=== PATIENT | male | born 1945 | race African-American/Black ===

== ENCOUNTER 2020-04-30 07:44 | Inpatient (IN) | payer MEDICARE, OTHER ==
[2020-04-30 08:45] LABS: ALT (SGPT) 35 U/L (8-55); AST (SGOT) 40 U/L (5-34); Albumin 4.5 g/dL (3.4-4.8); Alkaline Phosphatase 128 U/L (40-110); Anion Gap 17 mmol/L (10-20); BUN (Urea Nitrogen) 26 mg/dL (8.4-25.7); Bilirubin, Total 0.6 mg/dL (0.2-1.2); Calc. Creatinine Clearance 0 mL/min (70-130); Calcium 10.3 mg/dL (7.8-10.44); Carbon Dioxide 31 mmol/L (23-31); Chloride 94 mmol/L (98-107); Estimated GFR-MDRD Greater than 90; Globulin 3.6 g/dL (2.4-3.5); Glucose 119 mg/dL (83-110); Potassium 5.2 mmol/L (3.5-5.1); Protein, Total 8.1 g/dL (5.8-8.1); Sodium 137 mmol/L (136-145)
[2020-04-30 09:50] LABS: Bacteria/HPF None Seen HPF (None Seen); Bilirubin Negative (Negative); Blood, Urine 2+ (Negative); Clarity Clear (Clear); Glucose, Urine (Dipstick) Normal (Negative); Ketone, Urine Negative (Negative); Leukocyte Negative Leu/uL (Negative); Mucous/LPF 1+ LPF (<2+); Nitrite Negative (Negative); Protein, Urine (Dipstick) 50 mg/dL (Neg-Trace); RBC/HPF 21-50 HPF (0-3); Specific Gravity, Urine 1.028 (1.002-1.036); Squamous Epithelial 0-3 HPF (0-3); Urobilinogen Normal mg/dL (Less than 2)
[2020-04-30 10:14] LABS: Anisocytosis SLIGHT = 6-15 cells (100X) (0-5/hpf); Hemoglobin 17.1 g/dL (14.0-18.0); Large Platelets SLIGHT; Lymphocytes 15 % (21-51); MDiff Complete? YES; Macrocytosis SLIGHT = 6-15 cells (100X) (0-5/hpf); Mean Corpuscular HGB CONC 27.2 g/dL (32.0-36.0); Mean Corpuscular Hemoglobin 27.2 pg (27.0-31.0); Mean Corpuscular Volume 99.9 fL (78.0-98.0); Mean Platelet Volume 10.1 fL (7.4-10.4); Monocytes 11 % (0-10); Neutrophil 64 % (42-75); Platelet Count 145 thou/uL (130-400); Platelet Morphology Comment Appears Adequate; Polychromasia SLIGHT = 2-3 cells (100X) (0-2/hpf); RBC Distribution Width 16.3 % (11.5-14.5); Reactive Lymphocytes 10 % (0-10); Red Blood Cell (RBC) Count 6.31 mill/uL (4.70-6.10); Target Cells SLIGHT = 2-5 cells (100X) (0-1/hpf); Vacuoles SLIGHT; White Blood Cell (WBC) Count 6.3 thou/uL (4.8-10.8)
--- NOTE | 2020-04-30 10:16 | CT ---
CT OF BRAIN PERFORMED WITHOUT CONTRAST ENHANCEMENT: HISTORY: Level I stroke alert. Patient found aphasic this morning. FINDINGS: There is generalized ventricular and sulcal prominence. There are no signs of intracerebral hemorrha ge or extraaxial fluid collections. mastoid air cells and visualized sinuses are clear. IMPRESSION: No acute intracranial abnormalities. Findings telephoned to Dr. Astorga at 0757 hours. CODE CR POS: OFF
[2020-04-30] MEDS ORDERED: Vancomycin 1 GM/200 ML BAG ONE (10:30)
[2020-04-30] MEDS ORDERED: Cefepime 2 GM VIAL ONE (10:30)
--- NOTE | 2020-04-30 10:45 | RAD ---
EXAM: XR Pelvis AP STANDARD PROVIDED CLINICAL HISTORY: Injury after fall. COMPARISON: None FINDINGS: Contrast is seen in the urinary bladder related to recent contrasted study. 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 The hips are in external rotation which limits evaluation of the femoral necks. No obvious fracture is appreciated. There certainly no displaced fracture identified. Mild degenerative change are seen in the lower lumbar spine. IMPRESSION: No definite fracture is visualized. If there is pain localized to either hip, dedicated views of that hip are recommended for further evaluation.
--- NOTE | 2020-04-30 11:35 | CT ---
CT ANGIO OF HEAD AND NECK PERFORMED WITH INTRAVENOUS CONTRAST ENHANCEMENT WITH 3D RECONSTRUCTIONS: HISTORY: The patient was found aphasic unable to follow commands. Severe emphysematous lung changes are noted without infiltrates in the upper lobes. The thyroid glan d is unremarkable. Vocal cord region is unremarkable. Parapharyngeal spaces are clear. No signific ant jugular chain adenopathy. 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 The vertebral arteries are small. The left is larger than the right. The rig ht ends in the PICA branch. On the right side, the right common internal and external carotid arteries show no significant stenos is. There is plaque formation present. Similar changes are seen in the left. No significant stenosis by NASCET criteria. CT ANGIO OF HEAD PERFORMED WITH INTRAVENOUS CONTRAST ENHANCEMENT AND 3D RECONSTRUCTIONS: The anterior and middle cerebral arteries and their branches appear unremarkable. No evidence for an y large vessel occlusion. There is a origin of both posterior cerebral arteries. The basilar artery is very diminutive i n size and the main posterior circulation is fed by anterior circulation. IMPRESSION: 1. No evidence of any significant stenosis of either internal carotid artery by NASCET criteria. 2. No evidence of any thrombus within any of the larger branches of the anterior middle cerebral art eries. No aneurysm demonstrated. 3. The posterior circulation shows a very diminutive in size basilar artery. There is some contribu tion from the left vertebral. The right vertebral forms a PICA branch. There is origin of bot h posterior cerebral arteries which is the main contributor to posterior circulation flow. 4. This report was telephoned to Dr. Astorga at 0820 hours. CODE CR POS: OFF
--- NOTE | 2020-04-30 13:28 | RAD ---
PORTABLE CHEST: HISTORY: Syncope, stroke alert. FINDINGS: Heart size is enlarged. Chronic-appearing lung changes are seen. No focal infiltrative process is p resent. IMPRESSION: Chronic lung change. Cardiomegaly. POS: OFF
[2020-04-30] MEDS ORDERED: Acetaminophen 325 MG TAB PO PRN (15:53)
[2020-04-30] MEDS ORDERED: Senokot S 8.6-50 MG TAB PO PRN (15:53)
[2020-04-30] MEDS ORDERED: Sodium Chloride 0.9% 500 ML IV SCH (18:00)
[2020-04-30] MEDS ORDERED: Azithromycin 500 MG in Sodium Chloride 0.9% 250 ML 250 ML IVPB SCH (18:30)
[2020-04-30] MEDS ORDERED: cefTRIAXone\\ROCEPHIN 1 GM in Sodium Chloride 0.9% 100 ML IVPB SCH (18:30)
[2020-04-30] MEDS ORDERED: hydrALAZINE 20 MG/ML VIAL SLOW IVP PRN (18:39)
[2020-04-30] MEDS: Budesonide 0.5 MG/2 ML NEB NEB SCH (19:05)
--- NOTE | 2020-04-30 19:06 | HP ---
CHIEF COMPLAINT: Change in mental status. HISTORY OF PRESENT ILLNESS: The patient is a 75-year-old male with past medical history of atrial fibrillation, status post Watchman procedure 45 days ago; pneumonia, recurrent per ; COPD, on chronic oxygen; and heart failure, most likely diastolic, who presents to the hospital with complaints of change in mental status. The patient's , who is at the bedside states that the patient for the past 2 or 3 days has been having some intermittent confusion, decreased oral intake, decreased appetite, feeling weak. She denies any fevers or chills. The patient recently saw his PCP and also his urologist. The patient's stated that last night he fell asleep on the chair. When he did wake up this morning, she went to arouse him and he appeared to be more disoriented than at baseline. She then alerted her neighbor, who is a retired nurse, who came in and checked on the patient. Did some vitals and was concern for possible stroke. At this time, the patient was brought into the hospital by [facility]. The patient initially underwent an underwent a stroke evaluation in the ER. CT head was negative. CTA did not show any acute stenosis. The patient's then stated that the patient when he gets pneumonia, he does have periods of confusion and acts very similar to this. PAST MEDICAL HISTORY: 1. The patient has a history of CHF, unclear which type, most likely appears to be diastolic. 2. Pneumonia. He has had 3 pneumonias, two in 2019, one this year. 3. COPD. He is on chronic oxygen. 4. Atrial fibrillation. PAST SURGICAL HISTORY: He has had a Watchman procedure, which was done 45 days ago. He has also had a right knee arthroscopy and right rotator cuff repair. FAMILY HISTORY: Mother of some sort of cancer. Father had stroke. SOCIAL HISTORY: He is a former smoker, smoked a pack a day. He drinks socially. Denies any drug use. He is a full code. Lives with his . ALLERGIES: NO KNOWN DRUG ALLERGIES. MEDICATIONS: As of the following; 1. Eliquis 5 mg b.i.d. 2. Aspirin 81 mg daily. 3. Budesonide 0.5 neb b.i.d. 4. Metoprolol one p.o. b.i.d. 5. Prednisone 10 mg daily. 6. Tamsulosin 0.4 mg daily. REVIEW OF SYSTEMS: All negative except for the ones mentioned above in the HPI. PHYSICAL EXAMINATION: VITAL SIGNS: As of the following; temperature of 98.7, pulse 89, oxygen saturation 99% on 2.5 L, and blood pressure 160/97. GENERAL: He is awake, alert, and oriented x3. Does not appear in any distress. CV: S1 and S2 present. No murmurs, rubs, or gallops. LUNGS: Clear to auscultation. No rhonchi or wheezes noted. ABDOMEN: Soft and nontender. Bowel sounds are present x2. EXTREMITIES: He does have significant lower extremity edema. His left foot edema is greater than the right, which is normal per the patient's . He does have braces on both of his knees, which is not new. NEUROVASCULAR: Neurovascular-robles, no focal deficits noted. The patient is able to move all 4 extremities. SKIN: He has some bruising noted in his right hand and some swelling of the right hand. LABORATORY RESULTS: As of the following; sodium of 137, potassium of 5.2, BUN of 26, and creatinine of 0.84. His AST was 40. His alkaline phosphatase was 128. Hematology; WBCs of 6.3, hemoglobin of 17.1, hematocrit of 63.0, and platelets of 145. He had a urine, which indicated 4 to 6 wbc's in hyaline cast. IMAGING DATA: X-ray, he had a chest x-ray and a pelvic x-ray. Chest x-ray, according to my interpretation, just indicated some chronic lung changes. No acute abnormalities were noted. Pelvic x-ray indicated no fractures were noted. The patient also as I mentioned had a CTA and a brain CT. CTA indicated no evidence of significant stenosis of either internal carotid artery. No evidence of thrombus was noted. ASSESSMENT AND PLAN: The patient is a very pleasant 75-year-old male, who presents to the hospital with change in mental status. 1. Acute metabolic encephalopathy. This could be infectious versus stroke versus dehydration. The patient currently is at baseline per . I do not see any x-ray findings. No white count. No cough. No fever. Any concerns of pneumonia. However, I will start him on some broad-spectrum antibiotic for now. I will treat him for community-acquired pneumonia actually and I will get a CT of the chest without contrast to see if there are any findings of pneumonia. Stroke is definitely a possibility. The patient currently is at baseline. I will get an MRI brain just to rule out any stroke-like symptoms. May also get Neurology involved for this confusion. Dehydration is definitely a possibility. The patient's BUN is elevated than his creatinine. Also, his hematocrit is significantly elevated. This could be secondary to other possibilities also. I will hydrate him gently and see if his labs improve. 2. Chronic obstructive pulmonary disease, appears to be stable. He is on chronic oxygen and steroids, we will continue that. 3. Atrial fibrillation, status post Watchman procedure. We will continue the Eliquis for now. 4. Deep venous thrombosis prophylaxis. The patient is already on Eliquis. 5. Code status. I discussed this with the patient and the patient's . She states that she wants the patient to be full code. 6. Fall. The patient's is at the bedside states that the patient has had 2 or 3 falls for the past couple pf days. She denied any syncopal episode. She states that he has significant severe bad knees and he needs knee surgeries and for the past few days. He has been using a wheelchair because he has been just deconditioned to walk. We will get a right hip x-ray. The pelvic x-ray was okay. We will get a right hip x-ray. The patient's right hand appears to be significantly swollen compared to the left hand. We will also get x-rays. He does not have any abnormalities in range of motion of his right or the left. There is no pain. However, since he is on Eliquis, there is a concern for possible hematoma. We will also get PT and OT to see this patient. Job ID: [id number]
--- NOTE | 2020-04-30 19:50 | RAD ---
RIGHT HAND THREE VIEWS: 04/30/20 HISTORY: Fall with hand swelling. There are moderate arthritic changes present. Degenerative changes of the proximal and distal interph alangeal joints and first carpometacarpal joint spade. There are no signs of fracture or dislocation. IMPRESSION: Moderate arthritic changes of the hand. No acute injury. POS: JODI
--- NOTE | 2020-04-30 20:40 | RAD ---
RIGHT HIP: 04/30/20 Two views. HISTORY: Fall with injury. Slight buckling of the anterior cortex of subcapital region on the AP projection. This may be degener ative in nature. There is spurring from the femoral head which contributes to this finding. I cannot completely exclude a nondisplaced subcapital fracture. Recommend MRI of hip without contrast to be pe rformed in a.m. CT may be equivocal given the degenerative change present. IMPRESSION: Subtle subcapital fracture not completely excluded. Recommend MRI of hip without contrast in a.m. POS: LINNETTE
--- NOTE | 2020-04-30 22:03 | ULT ---
SOFT TISSUE ULTRASOUND RIGHT WRIST: 04/30/20 INDICATIONS: Fall with swelling over dorsal right wrist. FINDINGS/IMPRESSION: Soft tissue ultrasound to the area of palpable concern is performed. There is a hypoechoic mass in th e subcutaneous tissue corresponding to the palpable lump which measures 3.0 x 2.0 cm. Findings would be most consistent with hematoma given the history of injury. follow-up recommended to ensure resolut ion. POS: ARICW
[2020-04-30] MEDS: Metoprolol Tartrate 25 MG TAB PO SCH (22:09)
[2020-04-30] MEDS: Apixaban 5 MG TAB PO SCH (22:09)
--- NOTE | 2020-04-30 22:12 | CT ---
CT CHEST WITHOUT CONTRAST: 04/30/20 INDICATIONS: Question pneumonia. FINDINGS: There is cardiomegaly and mild vascular congestion. Interstitial prominence may represent interstiti al congestion and or interstitial edema. Mild bibasilar atelectasis. Tiny effusions. No consolidation . No evidence of inflammatory infiltrate. Images through the upper abdomen show calcifications in the upper collecting structures of both kidne ys. IMPRESSION: Cardiomegaly with vascular and interstitial congestive change. Mild bibasilar atelectasis and tiny ef fusions. POS: AGW
[2020-05-01 04:45] LABS: #Lymphocytes 0.6 thou/uL (1.20-3.40); #Neutrophils 5.3 thou/uL (1.40-6.50); %Eosinophils 0.7 % (0.0-10.0); %Lymphocytes 8.2 % (21.0-51.0); %Monocytes 14.9 % (0.0-10.0); %Neutrophils 76.2 % (42.0-75.0); Hemoglobin 16.2 g/dL (14.0-18.0); Mean Corpuscular Hemoglobin 28.2 pg (27.0-31.0); Mean Platelet Volume 10.3 fL (7.4-10.4); Platelet Count 156 thou/uL (130-400); RBC Distribution Width 16.2 % (11.5-14.5); Red Blood Cell (RBC) Count 5.75 mill/uL (4.70-6.10); White Blood Cell (WBC) Count 6.9 thou/uL (4.8-10.8)
[2020-05-01 05:09] LABS: Anion Gap 13 mmol/L (10-20); BUN (Urea Nitrogen) 21 mg/dL (8.4-25.7); Calc. Creatinine Clearance 120 mL/min (70-130); Calcium 9.5 mg/dL (7.8-10.44); Carbon Dioxide 32 mmol/L (23-31); Chloride 95 mmol/L (98-107); Estimated GFR-MDRD Greater than 90; Glucose 100 mg/dL (83-110); Potassium 5.2 mmol/L (3.5-5.1); Sodium 135 mmol/L (136-145)
[2020-05-01] MEDS: Budesonide 0.5 MG/2 ML NEB NEB SCH ×2 (07:19→18:22)
[2020-05-01] MEDS: Apixaban 5 MG TAB PO SCH ×2 (08:39→21:30)
[2020-05-01] MEDS: Metoprolol Tartrate 25 MG TAB PO SCH ×3 (08:39→21:30)
[2020-05-01] MEDS: Aspirin 81 mg Enteric Coated Tablet PO SCH (08:39)
[2020-05-01] MEDS: predniSONE 5 MG TAB PO SCH (08:41)
[2020-05-01] MEDS: Tamsulosin HCl 0.4 MG CAP PO SCH (08:41)
[2020-05-01] MEDS ORDERED: Enoxaparin Sodium 40 MG/0.4 ML SYRINGE SC SCH (09:00)
[2020-05-01] MEDS ORDERED: FLU VACC QS2020-21(65YR UP)/PF 240 MCG/0.7 ML SYRINGE IM ONE (09:00)
[2020-05-01 12:49] LABS: Actual Bicarbonate (HCO3a) 43.7 mEq/L (22-28); Base Excess (BEa) 12.4 mEq/L (-2.0 to +3.0); Calcium, Ionized (arterial) 1.28 mmol/L (1.12-1.30); Carboxyhemoglobin (COHb) 2.2 gm% (0.0-3.0); Hemoglobin (Hb) 16.3 g/dL (14.0-18.0); Potassium - ABG Lab 4.44 mmol/L (3.70-5.30); pH, Arterial 7.31 (7.35-7.45)
[2020-05-01 13:04] LABS: CO2 Tension 89.7 mmHg (35.0-45.0)
[2020-05-01 13:05] LABS: ALV-art Gradient 36.915 mmHg (0-20); O2 Tension (PaO2), arterial 50.6 mmHg (> 70.0)
[2020-05-01 13:23] LABS: SARS-CoV-2 MS2 Positive; SARS-CoV-2 N Gene Negative; SARS-CoV-2 S Gene Negative; SARS-CoV-2 by NAA Not Detected (NotDetected); SARS-CoV-2 orf1ab Negative
--- NOTE | 2020-05-01 13:27 | CON ---
NEUROLOGY CONSULTATION DATE OF CONSULTATION: 05/01/2020 REASON FOR CONSULTATION: Altered mental status. HISTORY OF PRESENT ILLNESS: Mr. Tico Yeh is a 75-year-old male with medical history significant for atrial fibrillation, status post Watchman procedure 45 days ago, pneumonia, COPD, heart failure, presented to the emergency room with altered mental status. Per , he has been having ongoing intermittent confusion with decreased oral intake and appetite since the last 3 to 4 days. The patient denies any fever, chills, chest pain, abdominal pain, focal weakness, focal paresthesias, nausea, vomiting, headache, chest pain, abdominal pain, slurred speech, or problems with swallowing associated with the confusion. Per , yesterday he was sleeping in the chair and was more somnolent and confused, so there was a concern about stroke and he was brought to the emergency room for further evaluation. Head CT was done, which was negative for acute intracranial pathology. CTA did not reveal any hemodynamically significant stenosis. REVIEW OF SYSTEMS: Per , All 14 systems were reviewed and were negative except the pertinent positive and negative mentioned in the HPI. PAST MEDICAL HISTORY: Congestive heart failure, pneumonia, COPD, atrial fibrillation. PAST SURGICAL HISTORY: Watchman procedure 45 days ago, right knee arthroscopy. FAMILY HISTORY: Significant for cancer and stroke. SOCIAL HISTORY: Former smoker, smokes a pack a day. Drinks socially. Denies illegal drug use. He lives with his . ALLERGIES: NO KNOWN DRUG ALLERGIES. HOME MEDICATIONS: 1. Eliquis 5 mg b.i.d. 2. Aspirin 81 mg daily. 3. Budesonide 0.5 nebs b.i.d. 4. Metoprolol 1 p.o. b.i.d. 5. Prednisone 10 mg p.o. b.i.d. 6. Tamsulosin 0.4 mg daily. Vital Signs & Weight: Vital Signs (12 hours) Temp Pulse Resp BP Pulse Ox 05/01/20 13:22 72 05/01/20 11:28 97.3 F L 68 24 H 119/71 94 L 05/01/20 07:47 99.1 F 75 17 135/77 100 05/01/20 07:19 75 17 05/01/20 04:00 97.4 F L 73 14 136/78 94 L Weight Weight 196 lb Most Recent Monitor Data Heart Rate from ECG 68 NIBP 133/67 NIBP BP-Mean 89 Respiration from ECG 9 SpO2 100 I&O: 04/30/20 05/01/20 05/02/20 06:59 06:59 06:59 Intake Total 640 Balance 640 Active Medications Generic Name Dose Route Start Last Admin Trade Name Dustinq PRN Reason Stop Dose Admin Apixaban 5 mg 04/30/20 21:00 05/01/20 08:39 Apixaban 5 Mg Tab PO 5 mg BID DILIA Administration Aspirin 81 mg 05/01/20 09:00 05/01/20 08:39 Aspirin 81 Mg Enteric Coated Tablet PO 81 mg DAILY DILIA Administration Budesonide 0.5 mg 04/30/20 18:30 05/01/20 07:19 Budesonide 0.5 Mg/2 Ml Neb NEB 0.5 mg BID-RT DILIA Administration Metoprolol Tartrate 12.5 mg 05/01/20 09:00 05/01/20 09:02 Metoprolol Tartrate 25 Mg Tab PO 12.5 mg BID DILIA Administration Prednisone 10 mg 05/01/20 09:00 05/01/20 08:41 Prednisone 5 Mg Tab PO 10 mg DAILY DILIA Administration Sodium Chloride 10 ml 04/30/20 21:00 05/01/20 08:41 Flush - Normal Saline 10 Ml Syringe IVF 10 ml Q12HR DILIA Administration Tamsulosin HCl 0.4 mg 05/01/20 09:00 05/01/20 08:41 Tamsulosin Hcl 0.4 Mg Cap PO 0.4 mg DAILY DILIA Administration - Exam Heart: negative: RRR, no murmur, no gallops, no rubs, normal peripheral pulses, irregular, diminshed peripheral pulses, murmur present, II/IV, III/IV Respiratory: negative: CTAB, no wheezes, no rales, no ronchi, normal chest expansion, no tachypnea, normal percussion, rales, rhonchi, tachypneic, wheezes Gastrointestinal: negative: soft, non-tender, non-distended, normal bowel sounds, no palpable masses, no hepatomegaly, no splenomegaly, no bruit, no guarding, no rigidity, tender to palpation, distended, diminished bowl sounds, voluntary guarding Extremities: 1+ LE edema Neurological: Mental status: The patient is alert and oriented to person only. Cranial nerves 2 through 12 intact. Motor: Muscle tone and bulk are normal. Moving all 4 extremities equally and symmetrically. Sensory: Intact. Cerebellar: Did not cooperate with the exam. Gait: Deferred due to the patient's safety reasons. DATA REVIEWED: I reviewed the imaging data including CT and CTA mentioned in the HPI. EEG negative for seizure activity. ASSESSMENT AND PLAN: (1) Acute metabolic encephalopathy Code(s): G93.41 - METABOLIC ENCEPHALOPATHY Status: Acute (2) Hypercapnic respiratory failure Code(s): J96.92 - RESPIRATORY FAILURE, UNSPECIFIED WITH HYPERCAPNIA Status: Acute (3) COPD (chronic obstructive pulmonary disease) Status: Acute (4) A-fib Code(s): I48.91 - UNSPECIFIED ATRIAL FIBRILLATION Status: Acute Mr. Tico Yeh is a 75-year-old male who presented with altered mental status. Altered mental status seems to be multifactorial secondary to metabolic and infectious etiologies; However, an intracranial process could not be completely ruled out. Electroencephalogram to rule out underlying seizure activity reviewed and was negative. MRI of the brain to rule out acute intracranial process. Continue home medications. Continue neuro checks every 4 hours. Continue medical management per primary team. Physical Therapy/Occupational Therapy/Speech. Deep venous thrombosis prophylaxis. Continue supportive measures. Plan discussed in detail with the patient and at bedside. We will continue to follow. Thank you for the consult. Job ID: [id number] MTDD
--- NOTE | 2020-05-01 13:51 | PDOC.HOSPP ---
- Subjective Encounter Date: 05/01/20 Encounter Time: 10:30 Subjective: pt up in bed only oriented x1 Per patient's he did not sleep well last night. He appeared to be confused. - Objective Vital Signs & Weight: Vital Signs (12 hours) Temp Pulse Resp BP Pulse Ox 05/01/20 13:22 72 05/01/20 11:28 97.3 F L 68 24 H 119/71 94 L 05/01/20 07:47 99.1 F 75 17 135/77 100 05/01/20 07:19 75 17 05/01/20 04:00 97.4 F L 73 14 136/78 94 L Weight Weight 196 lb Most Recent Monitor Data Heart Rate from ECG 68 NIBP 133/67 NIBP BP-Mean 89 Respiration from ECG 9 SpO2 100 I&O: 04/30/20 05/01/20 05/02/20 06:59 06:59 06:59 Intake Total 640 Balance 640 Result Diagrams: 05/01/20 04:30 05/01/20 04:30 Hospitalist ROS - Review of Systems Cardiovascular: denies: chest pain, palpitations, orthopnea, paroxysmal noc. dyspnea, edema, light headedness, other Gastrointestinal: denies: nausea, vomiting, abdominal pain, diarrhea, constipation, melena, hematochezia, other Genitourinary: denies: dysuria, frequency, incontinence, hematuria, retention, other - Medication Medications: Active Medications Generic Name Dose Route Start Last Admin Trade Name Freq PRN Reason Stop Dose Admin Apixaban 5 mg 04/30/20 21:00 05/01/20 08:39 Apixaban 5 Mg Tab PO 5 mg BID DILIA Administration Aspirin 81 mg 05/01/20 09:00 05/01/20 08:39 Aspirin 81 Mg Enteric Coated Tablet PO 81 mg DAILY DILIA Administration Budesonide 0.5 mg 04/30/20 18:30 05/01/20 07:19 Budesonide 0.5 Mg/2 Ml Neb NEB 0.5 mg BID-RT DILIA Administration Metoprolol Tartrate 12.5 mg 05/01/20 09:00 05/01/20 09:02 Metoprolol Tartrate 25 Mg Tab PO 12.5 mg BID DILIA Administration Prednisone 10 mg 05/01/20 09:00 05/01/20 08:41 Prednisone 5 Mg Tab PO 10 mg DAILY DILIA Administration Sodium Chloride 10 ml 04/30/20 21:00 05/01/20 08:41 Flush - Normal Saline 10 Ml Syringe IVF 10 ml Q12HR DILIA Administration Tamsulosin HCl 0.4 mg 05/01/20 09:00 05/01/20 08:41 Tamsulosin Hcl 0.4 Mg Cap PO 0.4 mg DAILY DILIA Administration - Exam Heart: negative: RRR, no murmur, no gallops, no rubs, normal peripheral pulses, irregular, diminshed peripheral pulses, murmur present, II/IV, III/IV Respiratory: negative: CTAB, no wheezes, no rales, no ronchi, normal chest expansion, no tachypnea, normal percussion, rales, rhonchi, tachypneic, wheezes Gastrointestinal: negative: soft, non-tender, non-distended, normal bowel sounds, no palpable masses, no hepatomegaly, no splenomegaly, no bruit, no guarding, no rigidity, tender to palpation, distended, diminished bowl sounds, voluntary guarding Extremities: 1+ LE edema Extremities - other findings: Left greater than right lower extremity. Right hand swelling Hosp A/P (1) Acute metabolic encephalopathy Code(s): G93.41 - METABOLIC ENCEPHALOPATHY Status: Acute (2) Hypercapnic respiratory failure Code(s): J96.92 - RESPIRATORY FAILURE, UNSPECIFIED WITH HYPERCAPNIA Status: Acute (3) COPD (chronic obstructive pulmonary disease) Status: Acute (4) A-fib Code(s): I48.91 - UNSPECIFIED ATRIAL FIBRILLATION Status: Acute - Plan Patient CT chest did not indicate any pneumonia. He has no leukocytosis no cough no fever. Will discontinue antibiotics. MRI brain ordered neurology consulted for change in mental status. EEG ordered. Patient is on chronic oxygen for his COPD. Blood gas indicated hypercapnia. Will put patient on BiPAP and transferred to [facility]. Patient's at bedside updated. I did speak in length with the patient's for possible underlying dementia. Patient is status post watchman's procedure for A. fib. We will continue anticoagulation for now. Consult pulmonology. Per patient's patient is on steroids from PCP for COPD.
[2020-05-02] MEDS ORDERED: Metoprolol Tartrate 5 MG/5 ML VIAL IVP PRN (02:36)
[2020-05-02] MEDS ORDERED: Magnesium 2 GM/50 ML 2 GM in Premix Bag 1 BAG IVPB SCH (02:45)
--- NOTE | 2020-05-02 02:45 | PDOC.EVN ---
Event Note - Event Note Event Note: Patient staying in MAT with heart rate in the 140s, patient had been going in and out of MAT but now is sustaining it. Mag level checked and will replace if needed. One time dose of metoprolol ordered. Patient asymptomatic, BP 127/80.
[2020-05-02 03:42] LABS: #Lymphocytes 0.6 thou/uL (1.20-3.40); #Monocytes 0.8 thou/uL (0.11-0.59); #Neutrophils 4.4 thou/uL (1.40-6.50); %Basophils 0.2 % (0.0-1.0); %Eosinophils 0.7 % (0.0-10.0); %Lymphocytes 10.7 % (21.0-51.0); %Monocytes 14.1 % (0.0-10.0); %Neutrophils 74.4 % (42.0-75.0); Mean Corpuscular HGB CONC 28.3 g/dL (32.0-36.0); Mean Platelet Volume 10.2 fL (7.4-10.4); Platelet Count 160 thou/uL (130-400); RBC Distribution Width 15.8 % (11.5-14.5); Red Blood Cell (RBC) Count 5.72 mill/uL (4.70-6.10); White Blood Cell (WBC) Count 5.9 thou/uL (4.8-10.8)
[2020-05-02 04:12] LABS: ALT (SGPT) 23 U/L (8-55); AST (SGOT) 29 U/L (5-34); Albumin 3.3 g/dL (3.4-4.8); Alkaline Phosphatase 87 U/L (40-110); Anion Gap 14 mmol/L (10-20); BUN (Urea Nitrogen) 17 mg/dL (8.4-25.7); Bilirubin, Total 0.7 mg/dL (0.2-1.2); Calc. Creatinine Clearance 137 mL/min (70-130); Calcium 9.4 mg/dL (7.8-10.44); Carbon Dioxide 34 mmol/L (23-31); Chloride 93 mmol/L (98-107); Estimated GFR-MDRD Greater than 90; Globulin 2.6 g/dL (2.4-3.5); Glucose 103 mg/dL (83-110); Magnesium 2.1 mg/dL (1.6-2.6); Potassium 4.5 mmol/L (3.5-5.1); Protein, Total 5.9 g/dL (5.8-8.1); Sodium 136 mmol/L (136-145)
[2020-05-02] MEDS: Budesonide 0.5 MG/2 ML NEB NEB SCH ×2 (05:13→18:28)
[2020-05-02] MEDS ORDERED: Diltiazem HCl 125 MG, Admixture Fee 1 EACH in Sodium Chloride 0.9% 100 ML IVPB SCH (09:00)
[2020-05-02] MEDS ORDERED: Diltiazem 125 MG in Sodium Chloride 0.9% 100 ML IVPB SCH (09:30)
[2020-05-02] MEDS ORDERED: Digoxin 0.5 MG/2 ML AMP SLOW IVP SCH (09:45)
[2020-05-02] MEDS ORDERED: methylPREDNISolone Sod Succ 40 MG VIAL IVP SCH (09:45)
[2020-05-02] MEDS ORDERED: Amiodarone 150 MG in Dextrose 5% in Water 100 ML IVPB SCH (09:45)
[2020-05-02] MEDS ORDERED: Sodium Chloride 0.9% 500 ML IV SCH (09:45)
[2020-05-02 09:54] LABS: Actual Bicarbonate (HCO3a) 44.7 mEq/L (22-28); Base Excess (BEa) 14.7 mEq/L (-2.0 to +3.0); Calcium, Ionized (arterial) 1.26 mmol/L (1.12-1.30); Hemoglobin (Hb) 16.2 g/dL (14.0-18.0); Potassium - ABG Lab 4.21 mmol/L (3.70-5.30); pH, Arterial 7.37 (7.35-7.45)
--- NOTE | 2020-05-02 09:57 | EEG ---
DATE OF SERVICE: 05/01/2020 ATTENDING PHYSICIAN: Ioana Funk MD. This EEG was performed using 24-channel Grow video digital EEG machine with 24-disk electrodes. This was an extended 2 hours 6 minutes of inpatient video EEG recording. Digital analysis of the EEG was done for spike and seizure detection, which revealed no abnormalities. BACKGROUND: A posterior background rhythm was not observed. HYPERVENTILATION: Not performed. PHOTIC STIMULATION: Not performed. SLEEP: No stage change was observed. EEG DIAGNOSES: 1. Generalized irregular theta activity seen during the recording. 2. Absence of posterior background rhythm. CLINICAL INTERPRETATION: This EEG is consistent with moderate generalized nonspecific cerebral dysfunction. Job ID: [id number]
[2020-05-02] MEDS: Amiodarone 450 MG in Dextrose 5% in Water 250 ML IVPB SCH ×2 (10:04→21:04)
[2020-05-02] MEDS: Aspirin 81 mg Enteric Coated Tablet PO SCH (10:10)
[2020-05-02] MEDS: Metoprolol Tartrate 25 MG TAB PO SCH ×2 (10:10→21:04)
[2020-05-02] MEDS: Apixaban 5 MG TAB PO SCH (10:10)
[2020-05-02] MEDS: Tamsulosin HCl 0.4 MG CAP PO SCH (10:11)
[2020-05-02 10:26] LABS: CO2 Tension 78.5 mmHg (35.0-45.0); O2 Tension (PaO2), arterial 58.6 mmHg (> 70.0)
[2020-05-02 10:27] LABS: ALV-art Gradient 57.175 mmHg (0-20); Puncture Site LB
[2020-05-02] MEDS: predniSONE 5 MG TAB PO SCH (10:50)
[2020-05-02] MEDS: Cefepime 1 GM in Sodium Chloride 0.9% 100 ML IVPB SCH ×2 (11:34→23:04)
[2020-05-02] MEDS ORDERED: Metoprolol Tartrate 5 MG/5 ML VIAL ONE (13:07)
[2020-05-02] MEDS ORDERED: Enoxaparin Sodium 100 MG/ML SYRINGE SC SCH (14:30)
[2020-05-02] MEDS: methylPREDNISolone Sod Succ 40 MG VIAL IVP SCH ×2 (15:01→21:04)
--- NOTE | 2020-05-02 15:47 | RAD ---
CHEST 1 VIEW PORTABLE: HISTORY: Tachycardia. COMPARISON: 04/30/2020. FINDINGS: Heart size is within normal limits. Mild bilateral vascular congestion. No confluent pneumonia or o vert edema. Slight left costophrenic angle blunting. IMPRESSION: Mild vascular congestion and slight costophrenic angle blunting on the left side. No confluent pneum onia or other acute process. POS: RRE
--- NOTE | 2020-05-02 16:06 | CON ---
DATE OF CONSULTATION: HISTORY OF PRESENT ILLNESS: Rao Doshi is a 75-year-old gentleman from [place], [place], who was life flighted over here with difficulty breathing, atrial fibrillation, apparently some stroke-like symptoms. Since admission, he has been placed on BiPAP. His condition has gone worse over the last 24 hours. His blood gas shows severe respiratory acidosis. He has gone back into atrial fibrillation with a rate of 150. He is given Cardizem only. He is now started on amiodarone drip. His is at the bedside who states that he is having difficulty breathing on 04/30/2020 at 7:54 in the morning. [facility] activated. He was life flighted over here. He normally goes to [place] for his usual medical care. In fact since November of this year, he has been there 4 times with atrial fibrillation, congestive heart failure, respiratory failure. He just had a Watchman procedure done one week ago, was to follow up with the doctors over there. He has received recently his amiodarone. Neurology was consulted over here. It is unclear what is transpired. He has severe limitation in his activity at home. Per the , he can barely walk. He has significant arthritis, hip pain. He has a walker at home. He has low-flow O2 at home. PAST MEDICAL HISTORY: Atrial fibrillation, CHF, Watchman procedure, hypertension, COPD, former smoker. PAST SURGICAL HISTORY: Including right arthroscopy, left rotator, heart ablation. SOCIAL HISTORY: Former smoker, quit 10 years ago. He worked in the past. MEDICATIONS: 1. Metoprolol 5 mg twice a day. 2. Lasix 40 once a day. 3. Tylenol. 4. Aspirin. 5. DuoNeb. 6. Flomax 0.4. 7. Prednisone. 8. Eliquis . 9. Symbicort. ALLERGIES: NONE. REVIEW OF SYSTEMS: Otherwise, 10-point negative. PHYSICAL EXAMINATION: GENERAL: He is lethargic, arousable. VITAL SIGNS: Temperature 98. Blood pressure 113/80, dropped to 80 systolic on Cardizem. Heart rate is 150. He has just been given amiodarone. CHEST: Decreased breath sounds. No wheezing. CARDIAC: Normal S1 and S2. No gallops. ABDOMEN: Soft. LABORATORY DATA: His lytes are normal. White count 5000, H and H 16 and 56, platelet count 160. PO2 of 50, pCO2 of 89, pH 7.31 on 2 L nasal O2. Coronavirus test was negative. DIAGNOSTIC STUDIES: He had a hand x-ray taken because of some pain and a fall which was apparently negative for any fractures. He had CT angio done which did not show any acute event. ASSESSMENT: Acute on chronic respiratory failure, abnormal chest x-ray, chronic scarring, atrial fibrillation status post Watchman procedure, hypertension, chronic obstructive pulmonary disease. PLAN: Another blood gas is being ordered if he is worse. He is probably going to be intubated. Otherwise, continue supportive care, neb treatment. This is a critical care time of 45 minutes. We will follow. Job ID: [id number]
--- NOTE | 2020-05-02 17:57 | PDOC.HOSPP ---
- Subjective Encounter Date: 05/02/20 Encounter Time: 09:00 Subjective: pt drowsy but arousable. - Objective Vital Signs & Weight: Vital Signs (12 hours) Temp Pulse BP Pulse Ox 05/02/20 16:33 99 05/02/20 12:00 100 05/02/20 11:21 97.6 F 05/02/20 09:54 139 H 05/02/20 09:34 139 H 113/81 05/02/20 08:00 98 05/02/20 07:51 98.6 F Weight Admit Weight 196 lb Weight 198 lb 2 oz Most Recent Monitor Data Heart Rate from ECG 71 NIBP 114/86 NIBP BP-Mean 95 Respiration from ECG 14 SpO2 100 I&O: 05/01/20 05/02/20 05/03/20 06:59 06:59 06:59 Intake Total 640 410 Balance 640 410 Result Diagrams: 05/02/20 03:29 05/02/20 03:29 Additional Labs: Accuchecks 05/02/20 09:45 POC Glucose 125 H Hospitalist ROS - Review of Systems Other: pt on bipap - Medication Medications: Active Medications Generic Name Dose Route Start Last Admin Trade Name Freq PRN Reason Stop Dose Admin Albuterol/Ipratropium 3 ml 05/02/20 11:00 05/02/20 15:11 Ipratropium/Albuterol Sulfate 3 Ml Neb NEB Not Given [id number] DILIA Aspirin 81 mg 05/01/20 09:00 05/02/20 10:10 Aspirin 81 Mg Enteric Coated Tablet PO Not Given DAILY DILIA Budesonide 0.5 mg 04/30/20 18:30 05/02/20 05:13 Budesonide 0.5 Mg/2 Ml Neb NEB 0.5 mg BID-RT DILIA Administration Diltiazem HCl 125 mg/ 125 mls @ 5 mls/hr 05/02/20 09:00 05/02/20 09:34 Miscellaneous Medication 1 IVPB 125 mls each/ Sodium Chloride INF DILIA Administration Protocol Amiodarone HCl 450 mg/ 259 mls @ 0 mls/hr 05/02/20 09:45 05/02/20 10:04 Dextrose/Water IVPB 259 mls INF DILIA Administration Protocol Per Protocol Cefepime HCl 1 gm/ Sodium 100 mls @ 200 mls/hr 05/02/20 11:00 05/02/20 11:34 Chloride IVPB 100 mls 1100,2300 DILIA Administration Methylprednisolone Sodium Succinate 40 mg 05/02/20 16:00 05/02/20 15:01 Methylprednisolone Sod Succ 40 Mg Vial IVP 40 mg 0400,1000,1600,2200 DILIA Administration Metoprolol Tartrate 12.5 mg 05/01/20 09:00 05/02/20 10:10 Metoprolol Tartrate 25 Mg Tab PO Not Given BID DILIA Metoprolol Tartrate 5 mg 05/02/20 02:36 05/02/20 02:56 Metoprolol Tartrate 5 Mg/5 Ml Vial IVP 05/07/20 02:37 5 mg ONE PRN Administration To Control Heart Rate Sodium Chloride 10 ml 04/30/20 21:00 05/02/20 10:10 Flush - Normal Saline 10 Ml Syringe IVF 10 ml Q12HR DILIA Administration Sodium Chloride 10 ml 04/30/20 18:30 05/02/20 03:02 Flush - Normal Saline 10 Ml Syringe IVF 10 ml PRN PRN Administration Saline Flush Tamsulosin HCl 0.4 mg 05/01/20 09:00 05/02/20 10:11 Tamsulosin Hcl 0.4 Mg Cap PO Not Given DAILY DILIA - Exam Neck: negative: supple, symmetric, no JVD, no thyromegaly, no lymphadenopathy, no carotid bruit, JVD Heart: negative: RRR, no murmur, no gallops, no rubs, normal peripheral pulses, irregular, diminshed peripheral pulses, murmur present, II/IV, III/IV Respiratory: negative: CTAB, no wheezes, no rales, no ronchi, normal chest expansion, no tachypnea, normal percussion, rales, rhonchi, tachypneic, wheezes Gastrointestinal: negative: soft, non-tender, non-distended, normal bowel sounds, no palpable masses, no hepatomegaly, no splenomegaly, no bruit, no guarding, no rigidity, tender to palpation, distended, diminished bowl sounds, voluntary guarding Hosp A/P (1) Acute metabolic encephalopathy Code(s): G93.41 - METABOLIC ENCEPHALOPATHY Status: Acute (2) Hypercapnic respiratory failure Code(s): J96.92 - RESPIRATORY FAILURE, UNSPECIFIED WITH HYPERCAPNIA Status: Acute (3) COPD (chronic obstructive pulmonary disease) Status: Acute (4) A-fib Code(s): I48.91 - UNSPECIFIED ATRIAL FIBRILLATION Status: Acute (5) Atrial flutter Code(s): I48.92 - UNSPECIFIED ATRIAL FLUTTER Status: Acute - Plan Patient CT chest did not indicate any pneumonia. He has no leukocytosis no cough no fever. Will discontinue antibiotics. MRI brain ordered neurology con sulted for change in mental status. EEG ordered. Patient is on chronic oxygen for his COPD. Blood gas indicated hypercapnia. Will put patient on BiPAP and transferred to [facility]. Patient's at bedside updated. I did speak in length with the patient's for possible underlying dementia. Patient is status post watchman's procedure for A. fib. We will continue anticoagulation for now. Consult pulmonology. Per patient's patient is on steroids from PCP for COPD. 05/02 patient was noted to be in a flutter. EKg done which indicates aflutter. Patient given IV Cardizem/amiodarone bolus and digoxin without any change in heart rate. pt also received beta paul. spoke with and updated her. I also called cardiology since pt will need cardioversion. He is on AC. pt more obtunded will get a blood gas. Pt was confused last night and did not wear his bipap.
--- NOTE | 2020-05-02 18:06 | EKG ---
Test Reason : Blood Pressure : / mmHG Vent. Rate : 145 BPM Atrial Rate : 300 BPM P-R Int : 000 ms QRS Dur : 084 ms QT Int : 248 ms P-R-T Axes : -84 086 080 degrees QTc Int : 385 ms Atrial flutter with variable A-V block Nonspecific ST and T wave abnormality Abnormal ECG When compared with ECG of 30-APR-2020 08:55, (Unconfirmed) Atrial flutter has replaced Sinus rhythm Vent. rate has increased BY [address] now depressed in Inferior leads Non-specific change in ST segment in Lateral leads Confirmed by DR. Gisselle HARRINGTON ([id number]) on 05/02/2020 6:05:31 PM Referred By: ANA Confirmed By:DR. Gisselle HARRINGTON
--- NOTE | 2020-05-02 20:17 | CON ---
DATE OF CONSULTATION: 05/02/2020 REASON FOR CONSULTATION: Atrial flutter with rate refractory to medical therapy. HISTORY OF PRESENT ILLNESS: Mr. Tico Yeh is a 76-year-old man. He was admitted to the hospital with confusion, disorientation, and aphasia. Initially thought there was concern that this could be a stroke, but later it was decided that it was more metabolic encephalopathy. The patient has a history of atrial arrhythmias. Last Fall, he had atrial arrhythmias. It sounds like he had atrial flutter and had an ablation done. He has had some recurrent arrhythmias since then, and in the Spring, he was given intravenous amiodarone and ultimately converted to normal rhythm. The patient on this occasion developed atrial flutter with refractory rate. He was given beta paul with no improvement in heart rate. He was given Cardizem that dropped his blood pressure. He is now on intravenous amiodarone, but the heart rate is 143 beats per minute consistently with no decrease in heart rate yet with on the amiodarone. The patient currently is on a BiPAP. PAST MEDICAL HISTORY: 1. History of congestive heart failure, unknown if systolic or diastolic. The described that maybe he had some element of diastolic dysfunction. The systolic function is not yet known. 2. History of COPD. 3. History of smoking, but he stopped many many years ago, a couple of decades ago. 4. History of congestive heart failure followed in [place], he has been getting his cardiac care in [place]. MEDICATION AT HOME: 1. Lasix. 2. Metoprolol 25 mg tablet half twice a day. 3. Aspirin. 4. Tamsulosin. 5. Apixaban 5 mg twice a day. ALLERGIES: NONE KNOWN. SOCIAL HISTORY: He has a very supportive . The patient does not smoke, he quit a couple of decades ago roughly. REVIEW OF SYSTEMS: VISION: No changes. HEARING: No changes. PULMONARY: He has COPD. CARDIAC: As outlined above. GASTROINTESTINAL: No nausea, vomiting, or diarrhea. PHYSICAL EXAMINATION: GENERAL: This is a somewhat ill-appearing, 75-year-old gentleman. VITAL SIGNS: His blood pressure is 104 systolic. Pulse 143 beats per minute, it is atrial flutter on the monitor. The patient currently is on BiPAP. LUNGS: Somewhat distant, but I do not hear any wheezing. CARDIAC: Tachycardiac. I do not hear murmur, rub, or gallop. ABDOMEN: Soft and nontender. EXTREMITIES: Warm and dry. No clubbing or cyanosis. There is [id number] edema in left lower extremity, minimal in the right lower extremity. The patient's states that is always the case, where he has edema in the left, but only minimal in the right. LABORATORY DATA: Arterial blood gas initially pH of 7.31, pCO2 of 89.7, PO2 is 50.6. Chest x-ray done on the 3rd revealed cardiomegaly. Pertinent laboratory, the blood gas as mentioned shows he is retaining CO2. Potassium is 4.6. Troponin 0.021. Serology, COVID negative. The patient initially came in with sinus rhythm, he has developed this atrial flutter here in the last 24 hours early since last night. The patient was given intravenous diltiazem and dropped his blood pressure, intravenous Cardizem has not been helpful, he has also received digoxin with no effect on the heart rate. ASSESSMENT: 1. Atrial flutter, refractory to medication. 2. History of atrial fibrillation as well. 3. Chronic obstructive pulmonary disease. 4. Metabolic encephalopathy. PLAN: 1. Stat echo is being done now. 2. He is receiving intravenous amiodarone. 3. If the patient's heart rate will not down, may need to proceed to urgent cardioversion. Discussed that with the patient's and family. Job ID: [id number] MTDD
[2020-05-02] MEDS: Enoxaparin Sodium 100 MG/ML SYRINGE SC SCH (21:05)
[2020-05-03] MEDS: methylPREDNISolone Sod Succ 40 MG VIAL IVP SCH ×2 (03:38→09:15)
[2020-05-03] MEDS: Budesonide 0.5 MG/2 ML NEB NEB SCH ×2 (08:22→19:09)
--- NOTE | 2020-05-03 08:40 | RAD ---
PORTABLE CHEST: INDICATION: CCU followup. COMPARISON: 05/02/2020. FINDINGS: The lungs show hazy infiltrate and/or atelectasis in the lung bases. Upper lung velasquez remain clear. Possible small effusions have a similar appearance. No evidence of interval change. POS: AGW
--- NOTE | 2020-05-03 09:06 | PRG ---
DATE OF SERVICE: 05/03/2020 SUBJECTIVE: Mr. Yeh feels much better today. He is on nasal cannula oxygen. He is awake and alert, sitting up in the bedside. He does not appear short of breath. OBJECTIVE: VITAL SIGNS: Oxygen saturation 100%, blood pressure 114/70, pulse 70, it is sinus with a rare PAC. LUNGS: Clear. CARDIAC: Normal S1 and normal S2. ABDOMEN: Soft and nontender. ASSESSMENT: 1. Status post atrial flutter with rapid rate refractory to medication. 2. Chronic obstructive pulmonary disease, longstanding. PLAN: 1. Transition to oral amiodarone. 2. He is currently on Lovenox, will go back to [facility] when he goes home. 3. Will likely need repeat ablation. Job ID: [id number] [facility]
[2020-05-03] MEDS: Enoxaparin Sodium 100 MG/ML SYRINGE SC SCH ×2 (09:14→20:29)
[2020-05-03] MEDS: Tamsulosin HCl 0.4 MG CAP PO SCH (09:15)
[2020-05-03] MEDS: Aspirin 81 mg Enteric Coated Tablet PO SCH (09:15)
[2020-05-03] MEDS: Amiodarone 200 MG TAB PO SCH ×2 (09:21→20:29)
[2020-05-03] MEDS: Metoprolol Tartrate 25 MG TAB PO SCH ×2 (09:21→20:29)
--- NOTE | 2020-05-03 10:24 | PRG ---
DATE OF SERVICE: 05/03/2020 SUBJECTIVE: This morning, he is better, he is less short of breath. OBJECTIVE: VITAL SIGNS: Pulse is 75, respiratory rate 24, saturations are 100% on 2 L, blood pressure 114/70. CHEST: Reveals no wheezing, no crackles. CARDIAC: Normal S1, normal S2. No gallops. ABDOMEN: No masses. ASSESSMENT: 1. Metabolic encephalopathy, resolved. 2. Supraventricular tachycardia, much improved. 3. Chronic obstructive pulmonary disease, improved. 4. Status post ablation. I am going to switch him over to oral medication, prednisone, antibiotics. I have told his he probably needs no more than 1 L nasal O2. He can be transitioned to a monitored bed any time. Job ID: [id number]
--- NOTE | 2020-05-03 13:59 | PDOC.HOSPP ---
- Subjective Encounter Date: 05/03/20 Encounter Time: 10:30 Subjective: pt up in bed awake but confused - Objective Vital Signs & Weight: Vital Signs (12 hours) Temp Pulse Pulse Resp BP Pulse Ox 05/03/20 11:33 98.5 F 05/03/20 09:29 85 121/69 05/03/20 08:22 69 24 H 100 05/03/20 08:19 69 24 H 100 05/03/20 08:00 98 05/03/20 07:28 98.4 F 05/03/20 03:00 99.2 F Weight Admit Weight 196 lb Weight 197 lb 1 oz Most Recent Monitor Data Heart Rate from ECG 73 NIBP 119/61 NIBP BP-Mean 80 Respiration from ECG 16 SpO2 100 I&O: 05/02/20 05/03/20 05/04/20 06:59 06:59 06:59 Intake Total 410 1945 250 Balance 410 1945 250 Result Diagrams: 05/02/20 03:29 05/02/20 03:29 Hospitalist ROS - Review of Systems Cardiovascular: denies: chest pain, palpitations, orthopnea, paroxysmal noc. dyspnea, edema, light headedness, other Gastrointestinal: denies: nausea, vomiting, abdominal pain, diarrhea, constipation, melena, hematochezia, other Genitourinary: denies: dysuria, frequency, incontinence, hematuria, retention, other - Medication Medications: Active Medications Generic Name Dose Route Start Last Admin Trade Name Freq PRN Reason Stop Dose Admin Albuterol/Ipratropium 3 ml 05/02/20 11:00 05/03/20 11:25 Ipratropium/Albuterol Sulfate 3 Ml Neb NEB Not Given [id number] DILIA Amiodarone HCl 400 mg 05/03/20 09:00 05/03/20 09:21 Amiodarone 200 Mg Tab PO 400 mg BID DILIA Administration Aspirin 81 mg 05/01/20 09:00 05/03/20 09:15 Aspirin 81 Mg Enteric Coated Tablet PO 81 mg DAILY DILIA Administration Budesonide 0.5 mg 04/30/20 18:30 05/03/20 08:22 Budesonide 0.5 Mg/2 Ml Neb NEB 0.5 mg BID-RT DILIA Administration Enoxaparin Sodium 100 mg 05/02/20 21:00 05/03/20 09:14 Enoxaparin Sodium 100 Mg/Ml Syringe SC 100 mg 0900,2100 DILIA Administration Amiodarone HCl 450 mg/ 259 mls @ 0 mls/hr 05/02/20 09:45 05/02/20 21:04 Dextrose/Water IVPB 05/03/20 14:00 259 mls INF DILIA Administration Protocol Per Protocol Metoprolol Tartrate 12.5 mg 05/01/20 09:00 05/03/20 09:21 Metoprolol Tartrate 25 Mg Tab PO 12.5 mg BID DILIA Administration Metoprolol Tartrate 5 mg 05/02/20 02:36 05/02/20 02:56 Metoprolol Tartrate 5 Mg/5 Ml Vial IVP 05/07/20 02:37 5 mg ONE PRN Administration To Control Heart Rate Sodium Chloride 10 ml 04/30/20 21:00 05/03/20 09:17 Flush - Normal Saline 10 Ml Syringe IVF 10 ml Q12HR DILIA Administration Sodium Chloride 10 ml 04/30/20 18:30 05/02/20 03:02 Flush - Normal Saline 10 Ml Syringe IVF 10 ml PRN PRN Administration Saline Flush Tamsulosin HCl 0.4 mg 05/01/20 09:00 05/03/20 09:15 Tamsulosin Hcl 0.4 Mg Cap PO 0.4 mg DAILY DILIA Administration - Exam Heart: negative: RRR, no murmur, no gallops, no rubs, normal peripheral pulses, irregular, diminshed peripheral pulses, murmur present, II/IV, III/IV Respiratory: negative: CTAB, no wheezes, no rales, no ronchi, normal chest expansion, no tachypnea, normal percussion, rales, rhonchi, tachypneic, wheezes Gastrointestinal: negative: soft, non-tender, non-distended, normal bowel sounds, no palpable masses, no hepatomegaly, no splenomegaly, no bruit, no guarding, no rigidity, tender to palpation, distended, diminished bowl sounds, voluntary guarding Extremities: 1+ LE edema Hosp A/P (1) Acute metabolic encephalopathy Code(s): G93.41 - METABOLIC ENCEPHALOPATHY Status: Acute (2) Hypercapnic respiratory failure Code(s): J96.92 - RESPIRATORY FAILURE, UNSPECIFIED WITH HYPERCAPNIA Status: Acute (3) COPD (chronic obstructive pulmonary disease) Status: Acute (4) A-fib Code(s): I48.91 - UNSPECIFIED ATRIAL FIBRILLATION Status: Acute (5) Atrial flutter Code(s): I48.92 - UNSPECIFIED ATRIAL FLUTTER Status: Acute - Plan Patient CT chest did not indicate any pneumonia. He has no leukocytosis no cough no fever. Will discontinue antibiotics. MRI brain ordered neurology consulted for change in mental status. EEG ordered. Patient is on chronic oxygen for his COPD. Blood gas indicated hypercapnia. Will put patient on BiPAP and transferred to [facility]. Patient's at bedside updated. I did speak in length with the patient's for possible underlying dementia. Patient is status post watchman's procedure for A. fib. We will continue anticoagulation for now. Consult pulmonology. Per patient's patient is on steroids from PCP for COPD. 05/02 patient was noted to be in a flutter. EKg done which indicates aflutter. Patient given IV Cardizem/amiodarone bolus and digoxin without any change in heart rate. pt also received beta paul. spoke with and updated her. I also called cardiology since pt will need cardioversion. He is on AC. pt more obtunded will get a blood gas. Pt was confused last night and did not wear his bipap. 05/03 patient up in bed more awake today. He tolerated the BiPAP last night. MRI brain pending. Patient's at the bedside updated. We will continue amiodarone. Status post cardioversion last night. Patient had significant hematuria today per nursing staff. Patient's states that last he did have a cystoscopy no significant findings per urology. If patient continues to have hematuria will get urology on board. Patient is on Eliquis.
[2020-05-03] MEDS: Doxycycline 100 MG CAP PO SCH (20:29)
[2020-05-04] MEDS: Melatonin 3 MG TAB PO PRN (02:31)
[2020-05-04] MEDS: Budesonide 0.5 MG/2 ML NEB NEB SCH ×2 (07:56→19:08)
--- NOTE | 2020-05-04 08:21 | PDOC.HOSPP ---
- Subjective Encounter Date: 05/04/20 Encounter Time: 11:15 Subjective: Patient up in bed currently no complaints. Per did not sleep last night. - Objective Vital Signs & Weight: Vital Signs (12 hours) Temp Pulse Resp Pulse Ox 05/04/20 07:58 72 24 H 100 05/04/20 07:56 72 24 H 100 05/04/20 07:25 98.2 F 05/04/20 03:49 97.6 F 05/04/20 00:10 97.7 F 05/03/20 20:30 98.2 F Weight Admit Weight 196 lb Weight 204 lb 8 oz Most Recent Monitor Data Heart Rate from ECG 67 NIBP 130/83 NIBP BP-Mean 98 Respiration from ECG 20 SpO2 100 I&O: 05/03/20 05/04/20 05/05/20 06:59 06:59 06:59 Intake Total 1944 1060 Output Total 300 Balance 1944 760 Result Diagrams: 05/04/20 09:45 05/04/20 09:45 Hospitalist ROS - Review of Systems Cardiovascular: denies: chest pain, palpitations, orthopnea, paroxysmal noc. dyspnea, edema, light headedness, other Gastrointestinal: denies: nausea, vomiting, abdominal pain, diarrhea, constipation, melena, hematochezia, other Genitourinary: denies: dysuria, frequency, incontinence, hematuria, retention, other - Medication Medications: Active Medications Generic Name Dose Route Start Last Admin Trade Name Freq PRN Reason Stop Dose Admin Albuterol/Ipratropium 3 ml 05/02/20 11:00 05/04/20 07:58 Ipratropium/Albuterol Sulfate 3 Ml Neb NEB 3 ml [id number] DILIA Administration Amiodarone HCl 400 mg 05/03/20 09:00 05/03/20 20:29 Amiodarone 200 Mg Tab PO 400 mg BID DILIA Administration Aspirin 81 mg 05/01/20 09:00 05/03/20 09:15 Aspirin 81 Mg Enteric Coated Tablet PO 81 mg DAILY DILIA Administration Budesonide 0.5 mg 04/30/20 18:30 05/04/20 07:56 Budesonide 0.5 Mg/2 Ml Neb NEB 0.5 mg BID-RT DILIA Administration Doxycycline Hyclate 100 mg 05/03/20 21:00 05/03/20 20:29 Doxycycline 100 Mg Cap PO 100 mg BID DILIA Administration Enoxaparin Sodium 100 mg 05/02/20 21:00 05/03/20 20:29 Enoxaparin Sodium 100 Mg/Ml Syringe SC 100 mg 0900,2100 DILIA Administration Melatonin 9 mg 05/04/20 01:44 05/04/20 02:31 Melatonin 3 Mg Tab PO 9 mg HS PRN Administration Insomnia Metoprolol Tartrate 12.5 mg 05/01/20 09:00 05/03/20 20:29 Metoprolol Tartrate 25 Mg Tab PO 12.5 mg BID DILIA Administration Metoprolol Tartrate 5 mg 05/02/20 02:36 05/02/20 02:56 Metoprolol Tartrate 5 Mg/5 Ml Vial IVP 05/07/20 02:37 5 mg ONE PRN Administration To Control Heart Rate Sodium Chloride 10 ml 04/30/20 21:00 05/03/20 20:30 Flush - Normal Saline 10 Ml Syringe IVF 10 ml Q12HR DILIA Administration Sodium Chloride 10 ml 04/30/20 18:30 05/02/20 03:02 Flush - Normal Saline 10 Ml Syringe IVF 10 ml PRN PRN Administration Saline Flush Tamsulosin HCl 0.4 mg 05/01/20 09:00 05/03/20 09:15 Tamsulosin Hcl 0.4 Mg Cap PO 0.4 mg DAILY DILIA Administration - Exam Neck: negative: supple, symmetric, no JVD, no thyromegaly, no lymphadenopathy, no carotid bruit, JVD Heart: negative: RRR, no murmur, no gallops, no rubs, normal peripheral pulses, irregular, diminshed peripheral pulses, murmur present, II/IV, III/IV Respiratory: negative: CTAB, no wheezes, no rales, no ronchi, normal chest expansion, no tachypnea, normal percussion, rales, rhonchi, tachypneic, wheezes Gastrointestinal: negative: soft, non-tender, non-distended, normal bowel sounds, no palpable masses, no hepatomegaly, no splenomegaly, no bruit, no guarding, no rigidity, tender to palpation, distended, diminished bowl sounds, voluntary guarding Extremities - other findings: Right hand swelling with mild hematoma noted improved from yesterday. Hosp A/P (1) Acute metabolic encephalopathy Code(s): G93.41 - METABOLIC ENCEPHALOPATHY Status: Acute (2) Hypercapnic respiratory failure Code(s): J96.92 - RESPIRATORY FAILURE, UNSPECIFIED WITH HYPERCAPNIA Status: Acute Qualifiers: Chronicity: acute on chronic Qualified Code(s): J96.22 - Acute and chronic respiratory failure with hypercapnia (3) COPD (chronic obstructive pulmonary disease) Status: Acute (4) A-fib Code(s): I48.91 - UNSPECIFIED ATRIAL FIBRILLATION Status: Acute (5) Atrial flutter Code(s): I48.92 - UNSPECIFIED ATRIAL FLUTTER Status: Acute - Plan Patient CT chest did not indicate any pneumonia. He has no leukocytosis no cough no fever. Will discontinue antibiotics. MRI brain ordered neurology consulted for change in mental status. EEG ordered. Patient is on chronic oxygen for his COPD. Blood gas indicated hypercapnia. Will put patient on BiPAP and transferred to [facility]. Patient's at bedside updated. I did speak in length with the patient's for possible underlying dementia. Patient is status post watchman's procedure for A. fib. We will continue anticoagulation for now. Consult pulmonology. Per patient's patient is on steroids from PCP for COPD. 05/02 patient was noted to be in a flutter. EKg done which indicates aflutter. Patient given IV Cardizem/amiodarone bolus and digoxin without any change in heart rate. pt also received beta paul. spoke with and updated her. I also called cardiology since pt will need cardioversion. He is on AC. pt more obtunded will get a blood gas. Pt was confused last night and did not wear his bipap. 05/03 patient up in bed more awake today. He tolerated the BiPAP last night. MRI brain pending. Patient's at the bedside updated. We will continue amiodarone. Status post cardioversion last night. Patient had significant hematuria today per nursing staff. Patient's states that last he did have a cystoscopy no significant findings per urology. If patient continues to have hematuria will get urology on board. Patient is on Eliquis. 05/04 MRI brain right hip pending. Will start patient on Seroquel since he did not sleep last night and was confused. I was not notified by the RN for hematuria we will continue to monitor. Continue anticoagulation. Will consult inpatient rehab.
[2020-05-04] MEDS: Doxycycline 100 MG CAP PO SCH ×2 (09:19→19:55)
[2020-05-04] MEDS: Amiodarone 200 MG TAB PO SCH ×2 (09:19→19:55)
[2020-05-04] MEDS: Aspirin 81 mg Enteric Coated Tablet PO SCH (09:19)
[2020-05-04] MEDS: Metoprolol Tartrate 25 MG TAB PO SCH ×2 (09:19→19:56)
[2020-05-04] MEDS: predniSONE 20 MG TAB PO SCH (09:19)
[2020-05-04] MEDS: Tamsulosin HCl 0.4 MG CAP PO SCH (09:19)
[2020-05-04] MEDS: Enoxaparin Sodium 100 MG/ML SYRINGE SC SCH ×2 (09:21→19:55)
[2020-05-04 09:53] LABS: Hemoglobin 16.1 g/dL (14.0-18.0); Platelet Count 189 thou/uL (130-400)
--- NOTE | 2020-05-04 09:54 | PRG ---
DATE OF SERVICE: 05/04/2020 SUBJECTIVE: He was confused last night BiPAP off, getting out of the bed. He is back on his nasal O2. OBJECTIVE: VITAL SIGNS: His sats are 100%, pulse CHEST: Decreased breath sounds. No wheezing. CARDIAC: Normal S1, S2. No gallops. ABDOMEN: No masses. IMPRESSION: Recurrent supraventricular tachycardia, status post ablation, chronic obstructive pulmonary disease, respiratory failure, encephalopathy. PLAN: Low-dose steroids, neb treatment, antibiotics. We will continue to follow. Job ID: [id number]
[2020-05-04 10:19] LABS: Calc. Creatinine Clearance 125 mL/min (70-130); Estimated GFR-MDRD Greater than 90
[2020-05-04 12:32] VITALS: BMI 23.6
[2020-05-04] MEDS ORDERED: risperiDONE 1 MG TAB PO SCH (21:00)
[2020-05-05] MEDS: Budesonide 0.5 MG/2 ML NEB NEB SCH ×2 (08:15→18:59)
[2020-05-05] MEDS: predniSONE 20 MG TAB PO SCH (09:06)
[2020-05-05] MEDS: Amiodarone 200 MG TAB PO SCH ×2 (09:06→20:51)
[2020-05-05] MEDS: Metoprolol Tartrate 25 MG TAB PO SCH ×2 (09:06→20:52)
[2020-05-05] MEDS: Tamsulosin HCl 0.4 MG CAP PO SCH (09:06)
[2020-05-05] MEDS: Doxycycline 100 MG CAP PO SCH ×2 (09:06→20:51)
[2020-05-05] MEDS: Aspirin 81 mg Enteric Coated Tablet PO SCH (09:06)
[2020-05-05] MEDS: Enoxaparin Sodium 100 MG/ML SYRINGE SC SCH ×2 (09:07→21:00)
--- NOTE | 2020-05-05 09:24 | PRG ---
DATE OF SERVICE: 05/05/2020 SUBJECTIVE: Tico Yeh is a 75-year-old gentleman. This morning, he said he is feeling better. He is weak, but less short of breath. OBJECTIVE: VITAL SIGNS: Temperature 98, pulse 65, saturations are 96% on 1 L, and blood pressure 110/74. CHEST: Decreased breath sounds. No wheezing. CARDIAC: Normal S1 and S2. No gallops. ABDOMEN: No masses. ASSESSMENT: Respiratory failure, chronic obstructive pulmonary disease, supraventricular tachycardia. PLAN: He is stable enough to be transferred to rehab. Continue present treatment. We will follow. Job ID: [id number]
--- NOTE | 2020-05-05 11:12 | RAD ---
XR Ba Swallow W/Speech Therap History: Dysphagia unspecified R 13.10. Feeding difficulties R 63.3 Comparison: None. Findings: Multiple is a contrast given to the patient via the speech pathologist. Premature spillage with multiple contrast consistencies. Flash penetration without aspiration. Impression: Fluoroscopy for the speech pathologist. Please their report for details of the exam. Fluoroscopy time: 1.6 minutes
[2020-05-05] MEDS ORDERED: Lorazepam 2 MG/ML VIAL SLOW IVP SCH ×2 (15:45→16:00)
--- NOTE | 2020-05-05 15:49 | CCLSPC ---
PROCEDURE: Cardioversion. INDICATION: Refractory atrial flutter. PROCEDURE IN DETAIL: The patient was brought to the recovery room in a fasting state. He was sedated. His heart rate was 145 beats per minute, atrial flutter. He was given 100 joules of direct current synchronized energy and converted to sinus bradycardia in the 50s, then sinus rhythm in the 60s and 70s. Occasional PACs. CONCLUSION: Successful cardioversion. Job ID: [id number]
--- NOTE | 2020-05-05 18:23 | PDOC.HOSPP ---
- Subjective Encounter Date: 05/05/20 Encounter Time: 14:00 Subjective: Patient up in bed awake however oriented x2 - Objective Vital Signs & Weight: Vital Signs (12 hours) Temp Pulse Resp Pulse Ox 05/05/20 16:10 98.2 F 05/05/20 14:27 73 20 99 05/05/20 12:05 98.0 F 05/05/20 08:40 99 05/05/20 08:15 65 17 96 05/05/20 07:10 98.2 F Weight Admit Weight 196 lb Weight 204 lb 8 oz Most Recent Monitor Data Heart Rate from ECG 83 NIBP 124/67 NIBP BP-Mean 86 Respiration from ECG 26 SpO2 96 I&O: 05/04/20 05/05/20 05/06/20 06:59 06:59 06:59 Intake Total 1060 100 Output Total 300 Balance 760 100 Result Diagrams: 05/04/20 09:45 05/04/20 09:45 Hospitalist ROS - Review of Systems Respiratory: denies: cough, dry, shortness of breath, hemoptysis, SOB with excertion, pleuritic pain, sputum, wheezing, other Cardiovascular: denies: chest pain, palpitations, orthopnea, paroxysmal noc. dyspnea, edema, light headedness, other Gastrointestinal: denies: nausea, vomiting, abdominal pain, diarrhea, constipation, melena, hematochezia, other - Medication Medications: Active Medications Generic Name Dose Route Start Last Admin Trade Name Freq PRN Reason Stop Dose Admin Albuterol/Ipratropium 3 ml 05/02/20 11:00 05/05/20 14:27 Ipratropium/Albuterol Sulfate 3 Ml Neb NEB 3 ml [id number] DILIA Administration Amiodarone HCl 400 mg 05/03/20 09:00 05/05/20 09:06 Amiodarone 200 Mg Tab PO 400 mg BID DILIA Administration Aspirin 81 mg 05/01/20 09:00 05/05/20 09:06 Aspirin 81 Mg Enteric Coated Tablet PO 81 mg DAILY DILIA Administration Budesonide 0.5 mg 04/30/20 18:30 05/05/20 08:15 Budesonide 0.5 Mg/2 Ml Neb NEB 0.5 mg BID-RT DILIA Administration Doxycycline Hyclate 100 mg 05/03/20 21:00 05/05/20 09:06 Doxycycline 100 Mg Cap PO 100 mg BID DILIA Administration Enoxaparin Sodium 100 mg 05/02/20 21:00 05/05/20 09:07 Enoxaparin Sodium 100 Mg/Ml Syringe SC 100 mg 0900,2100 DILIA Administration Melatonin 9 mg 05/04/20 01:44 05/04/20 02:31 Melatonin 3 Mg Tab PO 9 mg HS PRN Administration Insomnia Metoprolol Tartrate 12.5 mg 05/01/20 09:00 05/05/20 09:06 Metoprolol Tartrate 25 Mg Tab PO 12.5 mg BID DILIA Administration Metoprolol Tartrate 5 mg 05/02/20 02:36 05/02/20 02:56 Metoprolol Tartrate 5 Mg/5 Ml Vial IVP 05/07/20 02:37 5 mg ONE PRN Administration To Control Heart Rate Prednisone 20 mg 05/04/20 08:00 05/05/20 09:06 Prednisone 20 Mg Tab PO 20 mg QAM-WM DILIA Administration Quetiapine Fumarate 25 mg 05/04/20 19:00 05/04/20 19:54 Quetiapine Fumarate 25 Mg Tab PO 25 mg 1900 DILIA Administration Sodium Chloride 10 ml 04/30/20 21:00 05/05/20 09:07 Flush - Normal Saline 10 Ml Syringe IVF 10 ml Q12HR DILIA Administration Sodium Chloride 10 ml 04/30/20 18:30 05/02/20 03:02 Flush - Normal Saline 10 Ml Syringe IVF 10 ml PRN PRN Administration Saline Flush Tamsulosin HCl 0.4 mg 05/01/20 09:00 05/05/20 09:06 Tamsulosin Hcl 0.4 Mg Cap PO 0.4 mg DAILY DILIA Administration - Exam Neck: negative: supple, symmetric, no JVD, no thyromegaly, no lymphadenopathy, no carotid bruit, JVD Heart: negative: RRR, no murmur, no gallops, no rubs, normal peripheral pulses, irregular, diminshed peripheral pulses, murmur present, II/IV, III/IV Respiratory: negative: CTAB, no wheezes, no rales, no ronchi, normal chest expansion, no tachypnea, normal percussion, rales, rhonchi, tachypneic, wheezes Gastrointestinal: negative: soft, non-tender, non-distended, normal bowel sounds, no palpable masses, no hepatomegaly, no splenomegaly, no bruit, no guarding, no rigidity, tender to palpation, distended, diminished bowl sounds, voluntary guarding Extremities - other findings: Right hand swelling has improved Hosp A/P (1) Acute metabolic encephalopathy Code(s): G93.41 - METABOLIC ENCEPHALOPATHY Status: Acute (2) Hypercapnic respiratory failure Code(s): J96.92 - RESPIRATORY FAILURE, UNSPECIFIED WITH HYPERCAPNIA Status: Acute Qualifiers: Chronicity: acute on chronic Qualified Code(s): J96.22 - Acute and chronic respiratory failure with hypercapnia (3) COPD (chronic obstructive pulmonary disease) Status: Acute (4) A-fib Code(s): I48.91 - UNSPECIFIED ATRIAL FIBRILLATION Status: Acute (5) Atrial flutter Code(s): I48.92 - UNSPECIFIED ATRIAL FLUTTER Status: Acute - Plan Patient CT chest did not indicate any pneumonia. He has no leukocytosis no cough no fever. Will discontinue antibiotics. MRI brain ordered neurology consulted for change in mental status. EEG ordered. Patient is on chronic oxygen for his COPD. Blood gas indicated hypercapnia. Will put patient on BiPAP and transferred to [facility]. Patient's at bedside updated. I did speak in length with the patient's for possible underlying dementia. Patient is status post watchman's procedure for A. fib. We will continue anticoagulation for now. Consult pulmonology. Per patient's patient is on steroids from PCP for COPD. 05/02 patient was noted to be in a flutter. EKg done which indicates aflutter. Patient given IV Cardizem/amiodarone bolus and digoxin without any change in heart rate. pt also received beta paul. spoke with and updated her. I also called cardiology since pt will need cardioversion. He is on AC. pt more obtunded will get a blood gas. Pt was confused last night and did not wear his bipap. 05/03 patient up in bed more awake today. He tolerated the BiPAP last night. MRI brain pending. Patient's at the bedside updated. We will continue amiodarone. Status post cardioversion last night. Patient had significant hematuria today per nursing staff. Patient's states that last he did have a cystoscopy no significant findings per urology. If patient continues to have hematuria will get urology on board. Patient is on Eliquis. 05/04 MRI brain right hip pending. Will start patient on Seroquel since he did not sleep last night and was confused. I was not notified by the RN for hematuria we will continue to monitor. Continue anticoagulation. Will consult inpatient rehab. 05/05 MRI brain and right hip pending again patient was unable to lie still. Patient did well on Seroquel last night slept. Will check an EKG in the a.m. since patient is on amiodarone for prolonged QT. PT reevaluated the patient recommended inpatient rehab will consult.
[2020-05-05] MEDS: Melatonin 3 MG TAB PO PRN (20:51)
[2020-05-06] MEDS: Budesonide 0.5 MG/2 ML NEB NEB SCH ×2 (08:55→19:53)
[2020-05-06 09:41] LABS: ALT (SGPT) 21 U/L (8-55); AST (SGOT) 23 U/L (5-34); Albumin 3.1 g/dL (3.4-4.8); Alkaline Phosphatase 77 U/L (40-110); BUN (Urea Nitrogen) 15 mg/dL (8.4-25.7); Calc. Creatinine Clearance 141 mL/min (70-130); Calcium 9.3 mg/dL (7.8-10.44); Estimated GFR-MDRD Greater than 90; Globulin 2.5 g/dL (2.4-3.5); Glucose 81 mg/dL (83-110); Magnesium 1.8 mg/dL (1.6-2.6); Protein, Total 5.6 g/dL (5.8-8.1)
--- NOTE | 2020-05-06 09:49 | PRG ---
DATE OF SERVICE: 05/06/2020 SUBJECTIVE: Mr. Doshi is awake and alert today. He is breathing well. No complaints. OBJECTIVE: VITAL SIGNS: Blood pressure 113/69, pulse 60 to 66, it is sinus. LUNGS: Clear. CARDIAC: Normal S1 and normal S2. ABDOMEN: Soft, nontender. EXTREMITIES: There is no edema. ASSESSMENT: 1. Atrial arrhythmias, stable, status post cardioversion. 2. Enlarged right ventricle. 3. Chronic right heart failure. PLAN: 1. We will reduce amiodarone to 200 mg twice a day. 2. He is on anticoagulation, currently on enoxaparin, go back on Eliquis when he goes home. 3. 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 We will sign off for now. Job ID: [id number]
[2020-05-06 09:51] LABS: Anion Gap 14 mmol/L (10-20); Carbon Dioxide 33 mmol/L (23-31); Chloride 90 mmol/L (98-107); Eosinophils 3 % (0-10); Hemoglobin 14.6 g/dL (14.0-18.0); Hypochromia SLIGHT = 6-15 cells (100X) (0-5/hpf); Lymphocytes 11 % (21-51); MDiff Complete? YES; Mean Corpuscular HGB CONC 27.7 g/dL (32.0-36.0); Mean Corpuscular Hemoglobin 27.4 pg (27.0-31.0); Mean Corpuscular Volume 98.7 fL (78.0-98.0); Mean Platelet Volume 9.6 fL (7.4-10.4); Monocytes 12 % (0-10); Neutrophil 74 % (42-75); Platelet Count 169 thou/uL (130-400); Platelet Morphology Comment Appears Adequate; Potassium 4.7 mmol/L (3.5-5.1); RBC Distribution Width 15.8 % (11.5-14.5); Red Blood Cell (RBC) Count 5.34 mill/uL (4.70-6.10); Sodium 132 mmol/L (136-145); Target Cells SLIGHT = 2-5 cells (100X) (0-1/hpf)
--- NOTE | 2020-05-06 09:55 | PRG ---
DATE OF SERVICE: SUBJECTIVE: Tico Yeh this morning remains in the MICU. OBJECTIVE: VITAL SIGNS: Pulse 64, sats 100% on 2 L, respirations 18, blood pressure 98/60. GENERAL: He is more responsive. CHEST: Decreased breath sounds. No wheezing. CARDIAC: Normal S1, S2. No masses. ASSESSMENT: Chronic obstructive pulmonary disease exacerbation, respiratory failure, metabolic encephalopathy, supraventricular tachycardia. PLAN: Pulmonary-robles, still low dose. He needs aggressive PT, supportive care. Steroids. We will follow. Job ID: [id number]
[2020-05-06] MEDS: Aspirin 81 mg Enteric Coated Tablet PO SCH (10:00)
[2020-05-06] MEDS: Enoxaparin Sodium 100 MG/ML SYRINGE SC SCH (10:00)
[2020-05-06] MEDS: Metoprolol Tartrate 25 MG TAB PO SCH ×2 (10:00→21:41)
[2020-05-06] MEDS: predniSONE 20 MG TAB PO SCH (10:00)
[2020-05-06] MEDS: Doxycycline 100 MG CAP PO SCH ×2 (10:00→21:37)
[2020-05-06] MEDS: Tamsulosin HCl 0.4 MG CAP PO SCH (10:01)
--- NOTE | 2020-05-06 11:13 | MRI ---
MRI BRAIN NONCONTRAST: DATE: 05/06/2020 HISTORY: 75-year-old male with dysphagia: Possible stroke FINDINGS: Many of the images are degraded by patient motion. There is no obstructive hydrocephalus. There is no midline shift or any other evidence of mass effect. There is no extra-axial fluid collection. There is a moderate degree of T2-hyperintensities in the cerebral white matter consistent with chroni c ischemic white matter changes due to microvascular atherosclerosis. There is no evidence of recent hemorrhage or restricted diffusion. IMPRESSION: 1) moderate chronic ischemic white matter changes. 2) otherwise negative
[2020-05-06] MEDS: Amiodarone 200 MG TAB PO SCH ×2 (11:33→21:38)
--- NOTE | 2020-05-06 13:52 | MRI ---
MR OF THE RIGHT HIP WITHOUT CONTRAST: 05/06/20 INDICATION: Concern for hip fracture. COMPARISON: Right hip radiograph dated 04/30/20. FINDINGS: There is diffuse body wall edema. There is prominent motion artifact that limits image detail. There is a very small joint effusion involving the right hip. No displaced femoral fracture is evident. Sma ll left hip effusion is present. There is suspicion for a small subcortical fracture involving the me dial wall of the right acetabulum on image 11 of series 8 which is essentially nondisplaced. There is bladder diverticulum present along the left aspect of the bladder dome. There is scattered colonic d iverticula. IMPRESSION: 1. Nondisplaced subcortical insufficiency type fracture involving the right medial acetabular wa ll on image 11 of series 8 and image 11 of series 10. No proximal femoral fracture is evident. 2. Diffuse body wall edema. POS: [facility]
--- NOTE | 2020-05-06 18:08 | PDOC.HOSPP ---
- Subjective Encounter Date: 05/06/20 Encounter Time: 16:00 Subjective: Patient up in bed awake however oriented only x2 he is unable to repeat the plan I discussed with him - Objective Vital Signs & Weight: Vital Signs (12 hours) Temp Pulse Pulse Pulse Resp BP BP 05/06/20 15:36 98.6 F 05/06/20 14:34 71 17 05/06/20 12:15 97.8 F 05/06/20 09:48 72 69 123/63 121/68 05/06/20 08:57 64 16 05/06/20 08:55 64 16 05/06/20 08:40 05/06/20 07:29 98.1 F Pulse Ox Pulse Ox Pulse Ox 05/06/20 15:36 05/06/20 14:34 97 05/06/20 12:15 05/06/20 09:48 99 100 05/06/20 08:57 100 05/06/20 08:55 100 05/06/20 08:40 100 05/06/20 07:29 Weight Admit Weight 196 lb Weight 204 lb Most Recent Monitor Data Heart Rate from ECG 67 NIBP 111/62 NIBP BP-Mean 78 Respiration from ECG 23 SpO2 100 I&O: 05/05/20 05/06/20 05/07/20 06:59 06:59 06:59 Intake Total 100 1000 Output Total 400 Balance 100 600 Result Diagrams: 05/06/20 08:56 05/06/20 08:56 Hospitalist ROS - Review of Systems Cardiovascular: denies: chest pain, palpitations, orthopnea, paroxysmal noc. dyspnea, edema, light headedness, other Gastrointestinal: denies: nausea, vomiting, abdominal pain, diarrhea, constipat ion, melena, hematochezia, other Genitourinary: denies: dysuria, frequency, incontinence, hematuria, retention, other - Medication Medications: Active Medications Generic Name Dose Route Start Last Admin Trade Name Freq PRN Reason Stop Dose Admin Albuterol/Ipratropium 3 ml 05/02/20 11:00 05/06/20 14:34 Ipratropium/Albuterol Sulfate 3 Ml Neb NEB 3 ml [id number] DILIA Administration Aspirin 81 mg 05/01/20 09:00 05/06/20 10:00 Aspirin 81 Mg Enteric Coated Tablet PO 81 mg DAILY DILIA Administration Budesonide 0.5 mg 10/03/20 18:30 05/06/20 08:55 Budesonide 0.5 Mg/2 Ml Neb NEB 0.5 mg BID-RT DILIA Administration Doxycycline Hyclate 100 mg 05/03/20 21:00 05/06/20 10:00 Doxycycline 100 Mg Cap PO 100 mg BID DILIA Administration Enoxaparin Sodium 100 mg 05/02/20 21:00 05/06/20 10:00 Enoxaparin Sodium 100 Mg/Ml Syringe SC 100 mg 0900,2100 DILIA Administration Lorazepam 1 mg 05/05/20 16:00 05/06/20 10:11 Lorazepam 2 Mg/Ml Vial SLOW IVP 05/06/20 23:59 1 mg WILLCALL DILIA Administration Melatonin 9 mg 05/04/20 01:44 05/05/20 20:51 Melatonin 3 Mg Tab PO 9 mg HS PRN Administration Insomnia Metoprolol Tartrate 12.5 mg 05/01/20 09:00 05/06/20 10:00 Metoprolol Tartrate 25 Mg Tab PO 12.5 mg BID DILIA Administration Metoprolol Tartrate 5 mg 05/02/20 02:36 05/02/20 02:56 Metoprolol Tartrate 5 Mg/5 Ml Vial IVP 05/07/20 02:37 5 mg ONE PRN Administration To Control Heart Rate Prednisone 20 mg 05/04/20 08:00 05/06/20 10:00 Prednisone 20 Mg Tab PO 20 mg QAM-WM DILIA Administration Quetiapine Fumarate 25 mg 05/04/20 19:00 05/05/20 18:48 Quetiapine Fumarate 25 Mg Tab PO 25 mg 1900 DILIA Administration Sodium Chloride 10 ml 04/30/20 21:00 05/06/20 10:01 Flush - Normal Saline 10 Ml Syringe IVF 10 ml Q12HR DILIA Administration Sodium Chloride 10 ml 04/30/20 18:30 05/02/20 03:02 Flush - Normal Saline 10 Ml Syringe IVF 10 ml PRN PRN Administration Saline Flush Tamsulosin HCl 0.4 mg 05/01/20 09:00 05/06/20 10:01 Tamsulosin Hcl 0.4 Mg Cap PO 0.4 mg DAILY DILIA Administration - Exam Neck: negative: supple, symmetric, no JVD, no thyromegaly, no lymphadenopathy, no carotid bruit, JVD Heart: negative: RRR, no murmur, no gallops, no rubs, normal peripheral pulses, irregular, diminshed peripheral pulses, murmur present, II/IV, III/IV Respiratory: negative: CTAB, no wheezes, no rales, no ronchi, normal chest expansion, no tachypnea, normal percussion, rales, rhonchi, tachypneic, wheezes Gastrointestinal: negative: soft, non-tender, non-distended, normal bowel sounds, no palpable masses, no hepatomegaly, no splenomegaly, no bruit, no guarding, no rigidity, tender to palpation, distended, diminished bowl sounds, voluntary guarding Hosp A/P (1) Acute metabolic encephalopathy Code(s): G93.41 - METABOLIC ENCEPHALOPATHY Status: Acute (2) Hypercapnic respiratory failure Code(s): J96.92 - RESPIRATORY FAILURE, UNSPECIFIED WITH HYPERCAPNIA Status: Acute Qualifiers: Chronicity: acute on chronic Qualified Code(s): J96.22 - Acute and chronic respiratory failure with hypercapnia (3) COPD (chronic obstructive pulmonary disease) Status: Acute (4) A-fib Code(s): I48.91 - UNSPECIFIED ATRIAL FIBRILLATION Status: Acute (5) Atrial flutter Code(s): I48.92 - UNSPECIFIED ATRIAL FLUTTER Status: Acute - Plan Patient CT chest did not indicate any pneumonia. He has no leukocytosis no c ough no fever. Will discontinue antibiotics. MRI brain ordered neurology consulted for change in mental status. EEG ordered. Patient is on chronic oxygen for his COPD. Blood gas indicated hypercapnia. Will put patient on BiPAP and transferred to [facility]. Patient's at bedside updated. I did speak in length with the patient's for possible underlying dementia. Patient is status post watchman's procedure for A. fib. We will continue anticoagulation for now. Consult pulmonology. Per patient's patient is on steroids from PCP for COPD. 05/02 patient was noted to be in a flutter. EKg done which indicates aflutter. Patient given IV Cardizem/amiodarone bolus and digoxin without any change in heart rate. pt also received beta paul. spoke with and updated her. I also called cardiology since pt will need cardioversion. He is on AC. pt more obtunded will get a blood gas. Pt was confused last night and did not wear his bipap. 05/03 patient up in bed more awake today. He tolerated the BiPAP last night. MRI brain pending. Patient's at the bedside updated. We will continue amiodarone. Status post cardioversion last night. Patient had significant hematuria today per nursing staff. Patient's states that last he did have a cystoscopy no significant findings per urology. If patient continues to have hematuria will get urology on board. Patient is on Eliquis. 05/04 MRI brain right hip pending. Will start patient on Seroquel since he did not sleep last night and was confused. I was not notified by the RN for hematuria we will continue to monitor. Continue anticoagulation. Will consult inpatient rehab. 05/05 MRI brain and right hip pending again patient was unable to lie still. Patient did well on Seroquel last night slept. Will check an EKG in the a.m. since patient is on amiodarone for prolonged QT. PT reevaluated the patient recommended inpatient rehab will consult. 05/06 MRI brain negative for stroke. MRI lower extremity indicates nondisplaced subcortical insufficiency type fracture. Will consult orthopedics for ev aluation. Patient to go to inpatient rehab. Patient put on Seroquel given his agitation at night however I would be careful and not discharge him on this since he is on amiodarone. Will check labs in a.m.
[2020-05-06] MEDS: Apixaban 5 MG TAB PO SCH (21:38)
--- NOTE | 2020-05-07 00:46 | CON ---
DATE OF CONSULTATION: 05/06/2020 HISTORY OF PRESENT ILLNESS: Mr. Yeh is a 75-year-old male who has a history of atrial fibrillation. The patient reportedly had a change in mental status as reported by his , had intermittent confusion. He has fallen and had some pain in the right hip region. He was worked up for possible stroke. He had MRI performed earlier today, which showed an insufficiency fracture of the medial wall of the right acetabulum. I was consulted as orthopedics for evaluation and possible management. PAST MEDICAL HISTORY: Medical illnesses, history of CHF, pneumonia, COPD, atrial fibrillation. PAST SURGICAL HISTORY: Patient has had a Watchman procedure. PROCEDURE PERFORMED: Right knee arthroscopy, right rotator cuff repair. CURRENT MEDICATION: 1. Eliquis. 2. Aspirin. 3. Budesonide. 4. Metoprolol. 5. Prednisone. 6. Tamsulosin. PHYSICAL EXAMINATION: On the right hip, I am able to flex and extend the right hip without pain. He has 45 degrees of external rotation, 20 degrees of internal rotation without pain. The patient is able to actively flex and extend his hip also without pain. It is very smooth. There is no crepitance or popping. IMPRESSION: Nondisplaced insufficiency fracture of the medial wall of the right acetabulum. PLAN: The fracture is very stable and does not require surgical intervention. The patient may participate in physical therapy and get out of bed. He can weightbear as tolerated on the right lower extremity. He will follow up in my office in 4 weeks. Job ID: [id number]
[2020-05-07 06:31] LABS: Anion Gap 11 mmol/L (10-20); BUN (Urea Nitrogen) 13 mg/dL (8.4-25.7); Calc. Creatinine Clearance 135 mL/min (70-130); Calcium 9.3 mg/dL (7.8-10.44); Carbon Dioxide 36 mmol/L (23-31); Chloride 92 mmol/L (98-107); Estimated GFR-MDRD Greater than 90; Glucose 83 mg/dL (83-110); Magnesium 1.9 mg/dL (1.6-2.6); Potassium 4.7 mmol/L (3.5-5.1); Sodium 134 mmol/L (136-145)
[2020-05-07 07:39] LABS: Band 4 % (5-11); Eosinophils 1 % (0-10); Hemoglobin 15.5 g/dL (14.0-18.0); Large Platelets SLIGHT; Lymphocytes 20 % (21-51); MDiff Complete? YES; Mean Corpuscular HGB CONC 29.4 g/dL (32.0-36.0); Mean Corpuscular Hemoglobin 28.8 pg (27.0-31.0); Mean Corpuscular Volume 98.1 fL (78.0-98.0); Mean Platelet Volume 10.7 fL (7.4-10.4); Monocytes 1 % (0-10); Neutrophil 74 % (42-75); Platelet Count 154 thou/uL (130-400); RBC Distribution Width 15.7 % (11.5-14.5); Red Blood Cell (RBC) Count 5.36 mill/uL (4.70-6.10); White Blood Cell (WBC) Count 6.1 thou/uL (4.8-10.8)
[2020-05-07] MEDS: Budesonide 0.5 MG/2 ML NEB NEB SCH ×2 (08:22→18:37)
[2020-05-07] MEDS: acetaZOLAMIDE Sodium 500 MG in Sodium Chloride 0.9% 50 ML IVPB SCH (09:19)
[2020-05-07] MEDS: predniSONE 20 MG TAB PO SCH (09:19)
[2020-05-07] MEDS: Metoprolol Tartrate 25 MG TAB PO SCH ×2 (09:19→20:14)
[2020-05-07] MEDS: Doxycycline 100 MG CAP PO SCH ×2 (09:19→20:13)
[2020-05-07] MEDS: Aspirin 81 mg Enteric Coated Tablet PO SCH (09:19)
[2020-05-07] MEDS: Tamsulosin HCl 0.4 MG CAP PO SCH (09:19)
[2020-05-07] MEDS: Amiodarone 200 MG TAB PO SCH ×2 (09:19→20:13)
[2020-05-07] MEDS: Apixaban 5 MG TAB PO SCH ×2 (09:19→20:13)
[2020-05-07 09:25] LABS: Hemoglobin 15.8 g/dL (14.0-18.0); Platelet Count 193 thou/uL (130-400)
[2020-05-07 09:41] LABS: Calc. Creatinine Clearance 130 mL/min (70-130); Estimated GFR-MDRD Greater than 90
--- NOTE | 2020-05-07 11:54 | PRG ---
DATE OF SERVICE: 05/07/2020 SUBJECTIVE: This morning, he is doing much better. OBJECTIVE: GENERAL: Awake, alert, responsive, sitting on the side of the bed. VITAL SIGNS: Temperature 98, pulse 70, sats are 94% on 1 L, respiratory rate 17, blood pressure 112/61. CHEST: No wheezing. No crackles. CARDIAC: Normal S1 and S2. No gallops. ABDOMEN: No masses. ASSESSMENT: Chronic obstructive pulmonary disease exacerbation, respiratory failure, congestive heart failure, atrial fibrillation, encephalopathy, better. PLAN: Continue PT, supportive care, low-dose Diamox. Tend to find a placement for him. Job ID: [id number]
--- NOTE | 2020-05-07 15:32 | PDOC.HOSPP ---
- Subjective Encounter Date: 05/07/20 Encounter Time: 09:50 Subjective: at bedside. Patient is sitting in the chair. His mentation seems to be better per patient. They have been waiting for the rehab placement. I have discussed with them regarding orthopedic evaluation of no surgical intervention for his right hip fracture. - Objective Vital Signs & Weight: Vital Signs (12 hours) Temp Pulse Resp BP Pulse Ox 05/07/20 14:31 78 16 96 05/07/20 11:32 69 18 98 05/07/20 08:00 94 L 05/07/20 07:06 98 F 70 17 112/61 94 L 05/07/20 04:00 98.1 F 58 L 18 133/81 100 Weight Admit Weight 196 lb Weight 204 lb Most Recent Monitor Data Heart Rate from ECG 72 NIBP 119/67 NIBP BP-Mean 84 Respiration from ECG 26 SpO2 100 I&O: 05/06/20 05/07/20 05/08/20 06:59 06:59 06:59 Intake Total 1000 790 Output Total 400 351 Balance 600 439 Result Diagrams: 05/07/20 09:05 05/07/20 09:05 Hospitalist ROS - Medication Medications: Active Medications Generic Name Dose Route Start Last Admin Trade Name Freq PRN Reason Stop Dose Admin Albuterol/Ipratropium 3 ml 05/02/20 11:00 05/07/20 14:31 Ipratropium/Albuterol Sulfate 3 Ml Neb NEB 3 ml [id number] DILIA Administration Amiodarone HCl 200 mg 05/06/20 21:00 05/07/20 09:19 Amiodarone 200 Mg Tab PO 200 mg BID DILIA Administration Apixaban 5 mg 05/06/20 21:00 05/07/20 09:19 Apixaban 5 Mg Tab PO 5 mg BID DILIA Administration Aspirin 81 mg 05/01/20 09:00 05/07/20 09:19 Aspirin 81 Mg Enteric Coated Tablet PO 81 mg DAILY DILIA Administration Budesonide 0.5 mg 04/30/20 18:30 05/07/20 08:22 Budesonide 0.5 Mg/2 Ml Neb NEB Not Given BID-RT DILIA Doxycycline Hyclate 100 mg 05/03/20 21:00 05/07/20 09:19 Doxycycline 100 Mg Cap PO 100 mg BID DILIA Administration Acetazolamide Sodium 500 mg/ 50 mls @ 100 mls/hr 05/07/20 09:00 05/07/20 09:19 Sodium Chloride IVPB 05/10/20 09:01 50 mls DAILY DILIA Administration Melatonin 9 mg 05/04/20 01:44 05/05/20 20:51 Melatonin 3 Mg Tab PO 9 mg HS PRN Administration Insomnia Metoprolol Tartrate 12.5 mg 05/01/20 09:00 05/07/20 09:19 Metoprolol Tartrate 25 Mg Tab PO 12.5 mg BID DILIA Administration Prednisone 20 mg 05/04/20 08:00 05/07/20 09:19 Prednisone 20 Mg Tab PO 20 mg QAM-WM DILIA Administration Quetiapine Fumarate 25 mg 05/06/20 18:09 05/06/20 21:38 Quetiapine Fumarate 25 Mg Tab PO 25 mg 1900 PRN Administration Agitation Sodium Chloride 10 ml 04/30/20 21:00 05/07/20 09:20 Flush - Normal Saline 10 Ml Syringe IVF 10 ml Q12HR DILIA Administration Sodium Chloride 10 ml 04/30/20 18:30 05/02/20 03:02 Flush - Normal Saline 10 Ml Syringe IVF 10 ml PRN PRN Administration Saline Flush Tamsulosin HCl 0.4 mg 05/01/20 09:00 05/07/20 09:19 Tamsulosin Hcl 0.4 Mg Cap PO 0.4 mg DAILY DILIA Administration - Exam General Appearance: NAD, awake alert Eye: PERRL ENT: normocephalic atraumatic Neck: supple Heart: RRR Respiratory: CTAB, normal chest expansion Gastrointestinal: soft, normal bowel sounds Neurological: cranial nerve grossly intact, no focal deficits Psychiatric: A&O x 3 Hosp A/P - Plan (1) Acute metabolic encephalopathy Code(s): G93.41 - METABOLIC ENCEPHALOPATHY Status: Acute (2) Hypercapnic respiratory failure Code(s): J96.92 - RESPIRATORY FAILURE, UNSPECIFIED WITH HYPERCAPNIA Status: Acute Qualifiers: Chronicity: acute on chronic Qualified Code(s): J96.22 - Acute and chronic respiratory failure with hypercapnia (3) COPD (chronic obstructive pulmonary disease) On doxycycline and prednisone as well as nebulizer (4) A-fib -on apixaban and amiodarone as well as Lopressor Code(s): I48.91 - UNSPECIFIED ATRIAL FIBRILLATION Status: Acute (5) Atrial flutter Code(s): I48.92 - UNSPECIFIED ATRIAL FLUTTER Status: Acute Agitation--on Seroquel as needed MRI brain negative for stroke. MRI lower extremity indicates nondisplaced subcortical insufficiency type fracture. orthopedics said no surgical intervention. - inpatient rehab placement pending.
[2020-05-08] MEDS: Budesonide 0.5 MG/2 ML NEB NEB SCH (07:05)
[2020-05-08 07:33] VITALS: BP 95/55; TEMP 97.1
[2020-05-08] MEDS ORDERED: Loratadine 10 MG TAB PO PRN (07:54)
[2020-05-08] MEDS ORDERED: Bisacodyl 5 MG TAB PO PRN (07:54)
[2020-05-08] MEDS ORDERED: cloNIDine 0.1 MG TAB PO PRN (07:54)
[2020-05-08] MEDS ORDERED: Sodium Chloride 0.65% Nasal 44 ML BOT EA NARE PRN (07:54)
[2020-05-08] MEDS ORDERED: Diabetic Tussin 200 MG/10 ML UDCUP PO PRN (07:54)
[2020-05-08] MEDS ORDERED: Loperamide HCl 2 MG CAP PO PRN (07:54)
[2020-05-08] MEDS ORDERED: Cepastat Lozenges 1 LOZ PO PRN (07:54)
[2020-05-08] MEDS ORDERED: Benzonatate 100 MG CAP PO PRN (07:54)
[2020-05-08] MEDS ORDERED: Metoclopramide HCl 10 MG/2 ML VIAL IVP PRN (07:54)
[2020-05-08] MEDS ORDERED: Calcium Carbonate 500 MG ChewTAB PO PRN (07:54)
[2020-05-08] MEDS: Metoprolol Tartrate 25 MG TAB PO SCH (08:53)
[2020-05-08] MEDS: acetaZOLAMIDE Sodium 500 MG in Sodium Chloride 0.9% 50 ML IVPB SCH (08:53)
[2020-05-08] MEDS: Amiodarone 200 MG TAB PO SCH (08:53)
[2020-05-08] MEDS: predniSONE 20 MG TAB PO SCH (08:53)
[2020-05-08] MEDS: Tamsulosin HCl 0.4 MG CAP PO SCH (08:53)
[2020-05-08] MEDS: Apixaban 5 MG TAB PO SCH (08:54)
[2020-05-08] MEDS: Aspirin 81 mg Enteric Coated Tablet PO SCH (08:54)
--- NOTE | 2020-05-08 08:54 | EKG ---
Test Reason : Blood Pressure : / mmHG Vent. Rate : 064 BPM Atrial Rate : 064 BPM P-R Int : 148 ms QRS Dur : 082 ms QT Int : 402 ms P-R-T Axes : 073 070 067 degrees QTc Int : 414 ms Normal sinus rhythm with sinus arrhythmia Left atrial enlargement Nonspecific ST abnormality cannot r/o acute anterior MT Abnormal ECG When compared with ECG of 02-MAY-2020 08:37, Sinus rhythm has replaced Atrial flutter Vent. rate has decreased BY [address] no longer depressed in Inferior leads ST no longer depressed in Anterior leads ST elevation now present in Lateral leads Confirmed by DR. Gisselle HARRINGTON ([id number]) on 05/08/2020 8:54:07 AM Referred By: ANA Confirmed By:DR. Gisselle HARRINGTON
[2020-05-08] MEDS: Doxycycline 100 MG CAP PO SCH (08:59)
--- NOTE | 2020-05-08 12:03 | DIS ---
DATE OF ADMISSION: 04/30/2020 DATE OF DISCHARGE: 05/08/2020 PRIMARY CARE PHYSICIAN: [facility] Call admission. DISCHARGE DISPOSITION: Inpatient rehab. PRIMARY DISCHARGE DIAGNOSES: 1. Acute metabolic encephalopathy. 2. Acute respiratory failure with hypercapnia. 3. Chronic obstructive pulmonary disease exacerbation. 4. Atrial fibrillation/atrial flutter. SECONDARY DISCHARGE DIAGNOSES: Chronic anticoagulation, COPD, benign enlargement of prostate. PRIMARY PROCEDURE/OPERATION: None. RADIOLOGICAL INVESTIGATION: Chest x-ray showed pulmonary vascular congestion. Echocardiography showed normal EF, right ventricle enlargement. MRI brain negative for any stroke. Lower extremity MRI showed nondisplaced subcortical insufficiency type fracture involving right medial acetabular wall. SIGNIFICANT LABORATORY DATA: WBC 6.1, hemoglobin 15.8, platelet 193. Sodium 134, creatinine 0.63, calcium 9.3. LFTs normal. DISCHARGE MEDICATIONS: 1. Pulmicort nebulization twice daily. 2. DuoNeb q.6 hourly. 3. Aspirin 81 mg daily. 4. Eliquis 5 mg b.i.d. 5. Lasix 40 mg daily. 6. Melatonin 10 mg nightly p.r.n. 7. Metoprolol 12.5 mg twice daily. 8. Prednisone 10 mg daily. 9. Flomax 0.4 mg daily. 10. Tylenol #3 one or two tablets q.6 hourly p.r.n. 11. Amiodarone 200 mg twice daily. 12. Prednisone 20 mg p.o. daily for seven days, then reduce to 10 mg p.o. daily. 13. Seroquel 25 mg p.o. daily p.r.n. 14. Doxycycline 100 mg p.o. b.i.d. for 5 days. CONTRAINDICATION: None. CODE STATUS: Full code. 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 Cardiology group was consulted while in hospital for atrial arrhythmia. 2. Neurology was consulted for an altered mental status. Pulmonology was following for COPD. Dr. Juan C Upton was consulted for nondisplaced acetabular fracture. TEST RESULTS PENDING ON DISCHARGE: None. ALLERGIES: NO KNOWN DRUG ALLERGIES. DISCHARGE PLAN: Post hospital, the patient will follow up with his primary care physician as well as Cardiology in 1 to 2 weeks. The patient is discharged to rehab and subsequently he will make all this appointment. HOSPITAL COURSE: A 75-year-old male, who was admitted by Dr. Allie Bhimji for altered mental status. On admission, his altered mental status was attributed to be due to metabolic encephalopathy. He had CO2 retention, he had respiratory failure with hypercapnia. He was also having COPD with mild flare. He also had atrial fibrillation and he was on anticoagulation therapy. In the emergency room, patient had CT brain, [place], which was unremarkable. Subsequently, Neurology was also consulted and EEG was unremarkable for any seizure. MRI brain was negative for any stroke. The patient was complaining of leg pain and that is why a MRI hip was done, which showed acetabular fracture which was nondisplaced. Orthopedics cleared him for physical therapy. The patient also had a modified barium swallow study. Cardiology started on amiodarone during this admission. Pulmonology was following for COPD. This patient was completely physically weak and that is why he was requiring PT, OT, and he was approved for rehab today. I have seen and examined the patient at bedside today. PHYSICAL EXAMINATION: VITAL SIGNS: Currently, temperature 97.1, pulse 59, respiratory rate 20, saturation 100% on 2 L. Weight 204 pounds. Blood pressure 95/55. GENERAL: The patient is alert, awake, no acute distress. HEENT: Head, normocephalic and atraumatic. NECK: Supple. No JVD. No meningeal signs of irritation. LUNGS: Clear to auscultation without any rhonchi or rales. CARDIAC: S1 and S2 appear irregular. No murmur. No gallop. No rub. ABDOMEN: Soft, bowel sounds present. EXTREMITIES: No edema. NEUROLOGIC: Nonfocal examination. Overall, the patient is medically stable for discharge today to rehab. Paper work for discharge done and discharge medication reconciliation done. Plan of care discussed with the patient's at bedside. Job ID: [id number]
--- NOTE | 2020-05-08 12:09 | PRG ---
DATE OF SERVICE: SUBJECTIVE: Tico Yeh is a 75-year-old gentleman, who apparently has been more lethargic this morning. OBJECTIVE: VITAL SIGNS: His saturations are 95% on 1 L, somewhat increased oxygen to 2 L of 100%, respirations 20, temperature 97, blood pressure 99/55. CHEST: Decreased breath sounds. No wheezing. CARDIAC: Normal S1 and S2. No gallops. ABDOMEN: No masses. ASSESSMENT AND PLAN: End-stage chronic obstructive pulmonary disease, respiratory failure, supraventricular tachycardia, status post ablation. He is transferred to rehab. Please try and maintain his O2 at 1 L. Avoid any sedative medication. Continue steroids. Job ID: [id number]
--- NOTE | 2020-05-10 03:06 | PQF ---
Dear : Alexander Grimes Date 05/10/20 Please exercise your independent, professional judgment in responding to the clarification form. Clinical indicators are provided on the bottom of this form for your review Can you please further clarify the etiology of metabolic encephalopathy? Please check appropriate box(es): [ x ] Acute on chronic respirator failure [ x ] Dehydration [ ] Metabolic Encephalopathy of unknown etiology [ ] Other diagnosis please specify [ ] Unable to determine Physician Signature: Date/Time: For continuity of documentation, please document condition throughout progress notes and discharge summary. Thank You. To be completed by CDI/Coding staff for physician review: Present Clinical Indicators - Signs / Symptoms / Labs Results and Location in Medical Record [ x ] Change in metal status H and P pg.1 [ x ] 3 days has been having some intermittent confusion H and P pg.1 [ x ] Acute metabolic encephalopathy. This could be infectious versus stroke versus dehydration H and P pg.2 [ x ] Dehydration is definitely a possibility H and P pg.3 [ x ] This could be secondary to other possibility H and P pg.3 [ x ] CT was done which was negative for acute intracranial pathology Consult pg.1 05/01 [ x ] Altered mental status seems to be multi factorial 2/2 metabolic and infectious etiology Consult pg.5 05/01 [ x ] He had CO2 retention, he had respiratory failure with hypercapnia DS pg.1 [ x ] ABG PH: 05/01=7.31 05/02=7.37 Laboratory blood gas 05/01 [ x ] ABG pc02: 05/01=89.7 05/02=78.5 Laboratory blood gas 05/01 [ x ] ABG p02: 05/01=50.6 05/02=58.6 Laboratory blood gas 05/01 [ x ] ABG 02 sat: 05/01=85.9 05/02=91.8 Laboratory blood gas 05/01 Present Risk Factors Results and Location in Medical Record [ x ] AFib H and P pg.1 [ x ] COPD H and P pg.1 [ x ] CHF H and P pg.1 [ x ] Former smoker H and P pg.1 [ x ] 75 years old H and P pg.1 Present Treatments Results and Location in Medical Record [ x ] Brain CT 04/[address] 04/30 [ x ] EEG 05/01 EEG 05/01 [ x ] ECG 105 ECG 105 [ x ] Echocardiogram 05/03 Dr. Funk 05/01 [ x ] Brain MRI 05/06 [ x ] IV Fluids MAR [ x ] Neurology Consult Consult 04/30 [ x ] Pulmonology Consult Consult 05/01 CDS/Locomotive Engineer Signature: Davide Worthy Phone #: [facility] [phone] Date 05/10 This is a permanent part of the Medical Record [facility]
== END 2020-05-08 13:25 | DRG 640 ==
LOC: ERS 07:44 → 2NO 15:28 → IMCU/EMU 05-01 13:29 → T4-A 05-06 18:32
PROVIDERS: ADMIT Internal Medicine; ATTEND Internal Medicine
PROC: 3E0234Z Introduction of Serum, Toxoid and Vaccine into Muscle, Percutaneous Approach (ICD-10-PCS; principal; 2020-05-01)
PROC: 5A09457 Assistance with Respiratory Ventilation, 24-96 Consecutive Hours, Continuous Positive Airway Pressure (ICD-10-PCS; 2020-05-01)
PROC: 5A2204Z Restoration of Cardiac Rhythm, Single (ICD-10-PCS; 2020-05-05)
DX: E86.0 Dehydration (principal); G93.41 Metabolic encephalopathy; J96.22 Acute and chronic respiratory failure with hypercapnia; S32.474A Nondisplaced fracture of medial wall of right acetabulum, initial encounter for closed fracture; I50.32 Chronic diastolic (congestive) heart failure; I48.92 Unspecified atrial flutter; I47.1 Supraventricular tachycardia; E87.2 Acidosis; Z23 Encounter for immunization; Z20.828 Contact with and (suspected) exposure to other viral communicable diseases; J43.9 Emphysema, unspecified; I48.91 Unspecified atrial fibrillation; I11.0 Hypertensive heart disease with heart failure; W19.XXXA Unspecified fall, initial encounter; Z79.01 Long term (current) use of anticoagulants; Z79.899 Other long term (current) drug therapy; Z79.82 Long term (current) use of aspirin; Z79.52 Long term (current) use of systemic steroids; Z79.51 Long term (current) use of inhaled steroids; Z99.81 Dependence on supplemental oxygen; Z87.891 Personal history of nicotine dependence
CPT/HCPCS: 36415; 36416; 51701; 70450; 70496; 70498; 70551; 71045; 71250; 72170; 74230; 76882; 80048; 80053; 81003; 81015; 82550; 82565; 82805; 83605; 83735; 84484; 85014; 85018; 85025; 85049; 87040; 87086; 87635; 90471; 90662; 92960; 93005; 93010; 93306; 93798; 94640; 94660; 95712; 95816; 95819; 96365; 96366; 96368; G0008; J0282; J0456; J0692; J0696; J1120; J1160; J1650; J2060; J2920; J3370; J3475; J3490; J7050; J7070; J7512; J7620; J7626; U0003